=== PATIENT | male | born 1955 | race Hispanic/Latino ===

== ENCOUNTER 2024-10-24 04:04 | Inpatient (IN) | payer OTHER, MEDICARE ==
[~2024-10-24] VITALS: Ht 160 cm; Wt 66.3 kg
[~2024-10-24 04:04] MED LIST: INSU100V12 SQ; METF-444 PO; TRAM50TA4 PO
--- NOTE | 2024-10-24 04:18 | NUR ---
PT CARE ASSUMED AT THIS TIME
[2024-10-24] MEDS: LACTATED RINGERS 1000ML 1,000 ML IV ONE (04:42)
[2024-10-24 04:43] LABS: IMMATURE GRANULOCYTE ABSOLUTE 0.03 K/uL (0-1); NUCLEATED RED BLOOD CELLS 0.0 % (0.0-0.19); PLATELET COUNT (AUTO) 192 K/uL (130-400); RED BLOOD CELL COUNT(AUTO) 3.79 MIL/uL (4.50-6.20); RED CELL DISTRIBUTION WIDTH 13.1 % (11.0-15.5); WHITE BLOOD COUNT (AUTO) 8.9 K/uL (4.8-10.8)
[2024-10-24 04:51] LABS: APPEARANCE,URINE TURBID (CLEAR); GLUCOSE, URINE (UA) 500 mg/dL (NEGATIVE); LEUKOCYTE ESTERASE ,URINE 75 Leu/uL (NEGATIVE); NITRATE,URINE NEGATIVE (NEGATIVE); OCCULT BLOOD,URINE LARGE (NEGATIVE)
[2024-10-24 04:51] LABS: CREATININE 1.1 mg/dL (0.5-1.3); GLOMERULAR FILTR. RATE CALC 74.0 mL/min (>90); GLUCOSE,RANDOM 216.0 mg/dL (70-105); SODIUM SERUM 143.0 mmol/L (136-145); UREA NITROGEN, BLOOD 15.0 mg/dL (7-18)
[2024-10-24 04:52] LABS: ADD UA MICROSCOPIC YES
[2024-10-24 04:56] LABS: ASPARTATE AMINOTRANSFERASE 21.0 U/L (10-37); TOTAL PROTEIN, SERUM 6.4 g/dL (6.0-8.3)
--- NOTE | 2024-10-24 05:01 | HMCIMG ---
EXAM: CT Abdomen and Pelvis without IV contrast CLINICAL HISTORY: Pain. TECHNIQUE: Thin collimated axial CT images of the abdomen and pelvis were obtained, with sagittal and coronal reformatted images also submitted. CT scan is done according to ALARA (As Low As Reasonably Achievable). CONTRAST: None. COMPARISON: None. FINDINGS: Small pleural effusions bilaterally. Cholelithiasis with mildly hydropic gallbladder. No focal abnormality within the liver, pancreas, spleen, or adrenals. Punctate nonobstructive calculus in the left renal lower pole. There is mild hyperdensity in the medullary pyramid at the left renal upper pole. Unremarkable right kidney. The urinary bladder is suboptimally distended and grossly unremarkable. The prostate is within normal limits. No obvious bowel wall thickening, dilatation, or obstruction. Unremarkable appendix. Mild calcific atherosclerotic disease in the abdominal aorta and its branches. No pathological lymphadenopathy in the abdomen or pelvis. No ascites or pneumoperitoneum. No acute bony abnormality is evident. Degenerative osseous changes. IMPRESSIONS: Cholelithiasis with mildly hydropic gallbladder. Recommend ultrasound of the gallbladder to rule out acute cholecystitis. Small pleural effusions bilaterally. Punctate nonobstructive calculus in the left renal lower pole. Nonspecific hyperdensity in the medullary pyramid at the left renal upper pole. /[place]
--- NOTE | 2024-10-24 06:15 | ERN ---
General Chief Complaint: Blood in Urine: Stated Complaint: LOWER ABDOMINAL PAIN, BLOOD IN URINE Time Seen by MD: 04:30 History of Present Illness Initial Comments Mr Gee is a 69-year-old male with significant past medical history of type 2 diabetes presents today with the abdominal pain patient reports that he has been having increased abdominal pain and painful urination. Allergies: Coded Allergies: No Known Allergies (Unverified Allergy, Unknown, 07/09/14) Home Meds Reported Medications Tramadol Hcl (Tramadol HCl) 50 Mg Tablet, 50 MG PO DAILY, TAB 07/30/14 Insulin Detemir (Levemir) 100 Unit/1 Ml Vial, 100 UNIT SQ HS, VIAL 07/30/14 Metformin HCl (Metformin HCl) 500 Mg Tablet, 500 MG PO BID, TAB 07/30/14 Past Medical History Past Medical History: Diabetes-Type II Past Surgical History: None ROS Dictation Constitutional: Negative for fever,chills, and weight loss Eyes: Negative for injury, pain,redness, and discharge ENT: Negative for injury,pain or swelling Cardiovascular: Negative for chest pain, palpitations, and edema Respiratory: Negative for shortness of breath, cough, and wheezing, Abdomen/GI: Painful urination, blood in urine Back: Negative for injury and pain : Negative for injury, bleeding and discharge MS/Extremity: Negative for injury and deformity Skin: Negative for rash, and discoloration Neuro: Negative for headache, weakness, numbness, tingling, and seizure Psych: Negative for suicide ideation, homicidal ideation, and hallucinations Physical Exam Physical Exam Dictation General: awake, alert, NAD Head/Face: Normocephalic, atraumatic Eyes: PERRL, EOMI, vision at baseline ENT: oral cavity clear, TMs clear, no signs of infection Neck: Trachea midline, supple, no nuchal rigidity Cardiovascular: RRR, normal S1/S2, No MRGs, no JVD Respiratory: CTAB, no respiratory distress, No rales or wheezes Abdomen: Pain with palpation Skin: Warm, dry, normal turgor, no rash MS/Extremity: Pulses equal, no cyanosis, neurovascular intact, FROM Neuro: COAx4, GCS 15, strength 5/5, CN 2-12 intact, normal cerebellar exam, normal gait, Psych: Normal behavior, mood, and affect normal Results Laboratory and Microbiology Lab and Micro Result Laboratory Tests Test 10/24/24 04:29 10/24/24 04:37 Urine Color RED (YELLOW) Urine Appearance TURBID (CLEAR) Urine pH 6.0 (5.0-8.0) Urine Specific [place] 1.014 (1.001-1.031) Urine Protein 100 mg/dL (NEGATIVE) H Urine Glucose (UA) 500 mg/dL (NEGATIVE) H Urine Ketones NEGATIVE mg/dL (NEGATIVE) Urine Occult Blood LARGE (NEGATIVE) H Urine Nitrate NEGATIVE (NEGATIVE) Urine Bilirubin NEGATIVE mg/dL (NEGATIVE) Urine Urobilinogen 0.2 mg/dL (0.2-1.0) Urine Leukocyte Esterase 75 Jhonatan/uL (NEGATIVE) H Urine RBC TNTC /HPF (0-1) H Urine WBC 26-50 /HPF (0-1) H Urine Bacteria FEW /HPF (None Seen) White Blood Count 8.9 K/uL (4.8-10.8) Red Blood Count 3.79 MIL/uL (4.50-6.20) L Hemoglobin 11.8 g/dL (14.0-18.0) L Hematocrit 33.9 % (42-54) L Mean Corpuscular Volume 89.4 fL (79-99) Mean Corpuscular Hemoglobin 31.1 pg (27.0-33.0) Mean Corpuscular Hemoglobin Concent 34.8 g/dL (32.0-36.0) Red Cell Distribution Width 13.1 % (11.0-15.5) Platelet Count 192 K/uL (130-400) Mean Platelet Volume 10.1 fL (7.5-10.5) Immature Granulocyte % (Auto) 0.3 % (0-1) Neutrophils (%) (Auto) 67.9 % (40.0-77.0) Lymphocytes (%) (Auto) 23.6 % (21.0-51.0) Monocytes (%) (Auto) 6.4 % (3.0-13.0) Eosinophils (%) (Auto) 1.2 % (0.0-8.0) Basophils (%) (Auto) 0.6 % (0.0-5.0) Neutrophils # (Auto) 6.1 K/uL (1.8-7.7) Lymphocytes # (Auto) 2.1 K/uL (1.0-4.8) Monocytes # (Auto) 0.6 K/uL (0.1-1.0) Eosinophils # (Auto) 0.11 K/uL (0.00-0.70) Basophils # (Auto) 0.05 K/uL (0.00-0.20) Absolute Immature Granulocyte (auto 0.03 K/uL (0-1) Nucleated Red Blood Cells 0.0 % (0.0-0.19) Sodium Level 143 mmol/L (136-145) Potassium Level 3.7 mmol/L (3.5-5.1) Chloride Level 105 mmol/L (101-111) Carbon Dioxide Level 32 mmol/L (21-32) Blood Urea Nitrogen 15 mg/dL (7-18) Creatinine 1.1 mg/dL (0.5-1.3) Glomerular Filtration Rate Calc 74 mL/min (>90) Random Glucose 216 mg/dL (70-105) H Total Calcium 8.5 mg/dL (8.5-10.1) Total Bilirubin 0.5 mg/dL (0.2-1.0) Aspartate Amino Transf (AST/SGOT) 21 U/L (10-37) Alanine Aminotransferase (ALT/SGPT) 20 U/L (12-78) Alkaline Phosphatase 156 U/L (50-136) H Total Protein 6.4 g/dL (6.0-8.3) Albumin 2.9 g/dL (3.5-5.0) L MDM [facility] MDM: Differential diagnosis: Acute cholecystitis Rationale: Tests considered and ordered secondary to shared decision making include: labs, ECG and radiology Previous outside records reviewed: Old ER visits. Risk of complication and/or morbidity or mortality of patient management: None Medications-Per medication reconciliation Need for hospitalization: Patient does meet criteria for hospitalization. Need for emergency major/minor surgery: No There are no social concerns with this patient. Prescription drug management Prescriptions will include symptomatic care Patient's prior external medical records from other ER visits were reviewed by me as indicated. Prior testing and results from previous visits were reviewed. Prior tests were taken into account with medical decision making and resource utilization, independent historian/historians were used to obtain complete medical history. I independently interpreted the test that were performed, results were reviewed by me and considered findings on radiology if ordered. Medical management and examination interpretation discussions were had by me with other qualified healthcare professionals as indicated for the patient's care. ED Course Orders Procedure Category Date Status Time Cbc With Differential LAB 10/24/24 Complete 04:06 Comprehensive LAB 10/24/24 Complete Metabolic Panel 04:06 Urinalysis Profile LAB 10/24/24 Complete 04:06 Lactated Ringers PHA 10/24/24 Complete 1000ml (Lactated 04:30 Morphine 2mg Syg PHA 10/24/24 Complete (Morphine 2mg Syg) 04:30 Ct Abdomen/Pelvis W/O CT 10/24/24 Resulted Contrast 04:06 Culture Urine KVNG 10/24/24 In Process 04:52 Us Abdominal Ruq\Ltd US 10/24/24 Logged 06:16 Ceftriaxone 2gm Vial PHA 10/24/24 Complete (Rocephin 2gm Inj) 06:30 Morphine 4mg Syg PHA 10/24/24 Complete (Morphine 4mg Syg) 06:30 0.9%Nacl 1000ml (Ns PHA 10/24/24 In Process 1000ml) 06:30 Current Medications Medications (Trade) Dose Ordered Sig/Robel Route PRN Reason Start Time Stop Time Status Last Admin Dose Admin Ceftriaxone Sodium (Rocephin 2gm Inj) 2 gm ONCE ONCE IVPB 10/24/24 06:30 10/24/24 06:31 DC 10/24/24 06:39 Lactated Ringer's 1,000 ml @ 0 mls/hr ONCE ONCE IV 10/24/24 04:30 10/24/24 04:31 DC 10/24/24 04:42 Morphine Sulfate (morPHINE 2MG SYG) 2 mg ONCE ONCE IVP 10/24/24 04:30 10/24/24 04:31 DC 10/24/24 04:48 Morphine Sulfate (morPHINE 4MG SYG) 4 mg ONCE ONCE IVP 10/24/24 06:30 10/24/24 06:31 DC Sodium Chloride 729 ml @ 243 mls/hr ONCE ONCE IV 10/24/24 06:30 10/24/24 09:29 10/24/24 06:40 Vital Signs Date Time Temp Pulse Resp B/P (MAP) Pulse Ox O2 Delivery O2 Flow Rate FiO2 10/24/24 05:42 78 19 151/78 100 Room Air* 0 21 10/24/24 04:24 98.1 81 18 161/77 99 Room Air* 0 21 10/24/24 04:05 98.2 98 18 169/99 98 Room Air 0 DX & DISP Disposition: Other(Comment) Departure Impression: Primary Impression: Acute cholecystitis Condition: Stable Referrals: JENNIFFER KERN (PCP) ABNER TAPIA MD Oct 24, 2024 06:15
[2024-10-24] MEDS: 0.9%NACL 1000ML 729 ML IV ONE (06:40)
--- NOTE | 2024-10-24 07:03 | NUR ---
REPORT GIVEN TO JASMYN BALES AT THIS TIME
--- NOTE | 2024-10-24 07:39 | HMCIMG ---
EXAM: US Abdomen, Right Upper Quadrant. CLINICAL HISTORY: RUQ pain TECHNIQUE: Right upper quadrant sonography performed with image documentation. COMPARISON: None provided. FINDINGS: Hepatomegaly; the right hepatic lobe measures up to 16.7 cm in the craniocaudal dimension. There is appropriate echogenicity and echotexture of the hepatic parenchyma. The gallbladder is markedly distended, and filled with sludge and stones. There is no gallbladder wall thickening. There is ringdown artifact seen from the fundal wall suggesting adenomyomatosis. There is no pericholecystic free fluid. The common bile duct is normal in caliber, measuring up to 0.3 cm. The right kidney is normal in caliber, measuring up to 10.1 x 5.0 x 4.6 cm. IMPRESSION: 1. Cholelithiasis and biliary sludge with marked gallbladder distention. Gallbladder adenomyomatosis. If there is clinical concern for acute cholecystitis recommend a hepatobiliary (HIDA) scan for further evaluation. 2. Hepatomegaly with right hepatic lobe measuring 16.7 cm. /[place]
--- NOTE | 2024-10-24 08:25 | HP ---
[facility] HISTORY AND PHYSICAL Date of Service: Oct 24, 2024 Time of Service: 08:25 HISTORY OF PRESENT ILLNESS: Patient is a 69-year-old male with past medical history of diabetes mellitus type 2 came to the ED with chief complaint of lower abdominal pain, hematuria since last night. Patient complains of lower abdominal pain which does not have any aggravating or relieving factors and does not radiate since 1 day, patient denies fever, chills, headache, diarrhea, vomiting, pain or burning sensation with urination. Patient has associated nausea. He told that he never saw a doctor in last 7 years and does not take any medications for the diabetes mellitus. Patient never had any history of renal stones, blood in the urine. On arrival to the ED patient vitals temperature 98.2, heart rate 98, respiratory rate 18, blood pressure 169/99, saturating at 98% on room air. On labs patient white blood count 8.9, hemoglobin 11.8 And chemistries shows sodium 143, potassium 3.7, BUN 15, creatinine 1.1 , urinalysis shows glucosuria proteinuria and mild UTI with large occult blood. Patient received 2 g IV Rocephin, morphine 2 mg, IV fluid with LR 1000 mL in the ED . CT abdomen pelvis revealed cholelithiasis with mildly hydropic gallbladder which recommended ultrasound correlation to rule out acute cholecystitis and ultrasound abdomen showed cholelithiasis and biliary sludge with marked gallbladder distention recommended HIDA scan to rule out cholecystitis Small bilateral pleural effusions Punctate nonobstructive calculus in the left renal lower pole and nonspecific hyperdensity in the medullary per minute at the left renal upper pole. Patient is being admitted with a diagnosis of possible nephrolithiasis, possible cholecystitis. REVIEW OF SYSTEMS CONSTITUTIONAL: Denies fevers, chills, or night sweats. No unintentional weight loss reported. CARDIOVASCULAR: Denies any exertional angina, dyspnea on exertion, orthopnea, paroxysmal nocturnal dyspnea, palpitations, life-threatening arrhythmias, claudication. PULMONARY: Denies any shortness of breath, cough, phlegm/sputum, hemoptysis, pleuritic chest pain. GASTROINTESTINAL: Denies any type of dysphagia to either liquids or solids. Denies vomiting, pyrosis, early satiety, diarrhea, constipation, or changes in stool consistency or caliber. Denies coffee-ground emesis, hematemesis, hematochezia, or melanotic stools. Admits to lower abdominal pain, nausea GENITOURINARY: Denies frequency, urgency, nocturia, incontinence (Storage/Irritative symptoms.) Low urinary stream, straining to void, urinary intermittency or hesitancy, splitting of the voiding stream, terminal dribbling. Admits to blood in urine ENDOCRINOLOGIC: Denies polyuria, polydipsia, polyphagia or heat/cold intolerances. DERMATOLOGIC: Admits to a lot of rashes on upper and lower extremities PAST MEDICAL HISTORY: Diabetes mellitus type 2 PAST SURGICAL HISTORY: none PAST SOCIAL HISTORY: Denies smoking and alcohol FAMILY HISTORY: Noncontributory Coded Allergies: No Known Allergies (Unverified Allergy, Unknown, 07/09/14) PHYSICAL EXAM GENERAL APPEARANCE: The patient is awake, alert, and oriented, mild acute distress. CHEST: Normal chest expansion. Telemetry. LUNGS: Absence of any rales, rhonchi or any wheezing. CARDIOVASCULAR: Regular. S1 and S2 normal. No appreciable rubs, murmurs or gallops. ABDOMEN: Soft, , and nondistended. There is no rebound, voluntary guarding, or rigidity. EXTREMITIES: Non-edematous and not cyanotic. No clubbing. Good capillary refill. Vital Sign (Last 24 Hours) 10/24/24 07:44 Temp 98.2 Pulse 62 Resp 16 B/P (MAP) 121/62 Pulse Ox 100 O2 Delivery Room Air* O2 Flow Rate 0 FiO2 21 LABS: Laboratory: Test 10/24/24 04:37 10/24/24 04:29 Range/Units White Blood Count 8.9 4.8-10.8 K/uL Red Blood Count 3.79 L 4.50-6.20 MIL/uL Hemoglobin 11.8 L 14.0-18.0 g/dL Hematocrit 33.9 L 42-54 % Mean Corpuscular Volume 89.4 79-99 fL Mean Corpuscular Hemoglobin 31.1 27.0-33.0 pg Mean Corpuscular Hemoglobin Concent 34.8 32.0-36.0 g/dL Red Cell Distribution Width 13.1 11.0-15.5 % Platelet Count 192 130-400 K/uL Mean Platelet Volume 10.1 7.5-10.5 fL Immature Granulocyte % (Auto) 0.3 0-1 % Neutrophils (%) (Auto) 67.9 40.0-77.0 % Lymphocytes (%) (Auto) 23.6 21.0-51.0 % Monocytes (%) (Auto) 6.4 3.0-13.0 % Eosinophils (%) (Auto) 1.2 0.0-8.0 % Basophils (%) (Auto) 0.6 0.0-5.0 % Neutrophils # (Auto) 6.1 1.8-7.7 K/uL Lymphocytes # (Auto) 2.1 1.0-4.8 K/uL Monocytes # (Auto) 0.6 0.1-1.0 K/uL Eosinophils # (Auto) 0.11 0.00-0.70 K/uL Basophils # (Auto) 0.05 0.00-0.20 K/uL Absolute Immature Granulocyte (auto 0.03 0-1 K/uL Nucleated Red Blood Cells 0.0 0.0-0.19 % Sodium Level 143 136-145 mmol/L Potassium Level 3.7 3.5-5.1 mmol/L Chloride Level 105 101-111 mmol/L Carbon Dioxide Level 32 21-32 mmol/L Blood Urea Nitrogen 15 7-18 mg/dL Creatinine 1.1 0.5-1.3 mg/dL Glomerular Filtration Rate Calc 74 >90 mL/min Random Glucose 216 H 70-105 mg/dL Total Calcium 8.5 8.5-10.1 mg/dL Total Bilirubin 0.5 0.2-1.0 mg/dL Aspartate Amino Transf (AST/SGOT) 21 10-37 U/L Alanine Aminotransferase (ALT/SGPT) 20 12-78 U/L Alkaline Phosphatase 156 H 50-136 U/L Total Protein 6.4 6.0-8.3 g/dL Albumin 2.9 L 3.5-5.0 g/dL Urine Color RED YELLOW Urine Appearance TURBID CLEAR Urine pH 6.0 5.0-8.0 Urine Specific [place] 1.014 1.001-1.031 Urine Protein 100 H NEGATIVE mg/dL Urine Glucose (UA) 500 H NEGATIVE mg/dL Urine Ketones NEGATIVE NEGATIVE mg/dL Urine Occult Blood LARGE H NEGATIVE Urine Nitrate NEGATIVE NEGATIVE Urine Bilirubin NEGATIVE NEGATIVE mg/dL Urine Urobilinogen 0.2 0.2-1.0 mg/dL Urine Leukocyte Esterase 75 H NEGATIVE Jhonatan/uL Urine RBC TNTC H 0-1 /HPF Urine WBC 26-50 H 0-1 /HPF Urine Bacteria FEW None Seen /HPF Current Medications Medications (Trade) Dose Ordered Sig/Robel Route PRN Reason Start Time Stop Time Status Last Admin Dose Admin Acetaminophen (TYLenol 325MG TAB) 650 mg Q4H PRN PO TEMPERATURE GREATER THAN 101.5 10/24/24 08:30 11/23/24 08:29 UNV Acetaminophen (TYLenol 500MG TAB) 500 mg Q6H PRN PO MILD PAIN (1-3) 10/24/24 08:30 11/23/24 08:29 UNV Aspirin (Aspirin 81mg Ec Tab) 81 mg DAILY PO 10/24/24 09:00 11/23/24 08:59 UNV Dextrose (D50w) 50 ml AD PRN IV HYPOGLYCEMIA PROTOCOL 10/24/24 08:30 11/23/24 08:29 UNV Famotidine (Pepcid 20mg Vial) 20 mg BID IV 10/24/24 09:00 11/23/24 08:59 Glucagon (Glucagon 1mg Kit) 1 mg AD PRN IM HYPOGLYCEMIA PROTOCOL 10/24/24 08:30 11/23/24 08:29 UNV Hydromorphone HCl (DiLAUDid 0.5MG INJ) 0.5 mg Q6H PRN IVP SEVERE PAIN (7-10) 10/24/24 08:30 10/29/24 08:29 UNV Insulin Human Regular (humuLIN R 100 UNIT/ML 3ML) INSULIN SLIDING SCAL... ACHS SQ 10/24/24 11:30 11/23/24 11:29 UNV Magnesium Sulfate 50 ml @ 0 mls/hr PROTOCOL PRN IV mgprotocol 10/24/24 08:30 11/23/24 08:29 UNV Morphine Sulfate (morPHINE 2MG SYG) 1 mg Q4H PRN IVP MODERATE PAIN (4-6) 10/24/24 08:30 10/31/24 08:29 UNV Potassium Chloride 100 ml @ 50 mls/hr AD PRN IV POTASSIUM PROTOCOL 10/24/24 08:30 11/23/24 08:29 UNV Potassium Chloride 100 ml @ 100 mls/hr AD PRN IV POTASSIUM PROTOCOL 10/24/24 08:30 11/23/24 08:29 UNV Potassium Chloride (K-Dur/Klor-Con 20meq) 20 meq AD PRN PO POTASSIUM PROTOCOL 10/24/24 08:30 11/23/24 08:29 UNV Potassium Chloride (KCl 10% Elixir 20meq/15ml) 20 meq AD PRN PO POTASSIUM PROTOCOL 10/24/24 08:30 11/23/24 08:29 UNV Sodium Chloride 1,000 ml @ 110 mls/hr Q9H6M IV 10/24/24 08:30 11/23/24 08:29 DIAGNOSTICS / RADIOLOGY: PATIENT: ZAFAR WALDRON MR#: [id number] : 1955 SEX: M AGE: 69 LOCATION: [facility] ORDER 6 STATUS: REG REPORT#: [id number] SERVICE 5 REASON: RUQ pain ORDERING PHYSICIAN: ABNER TAPIA MD PROCEDURE: [id number] - US ABDOMINAL RUQ\LTD EXAM: US Abdomen, Right Upper Quadrant. CLINICAL HISTORY: RUQ pain TECHNIQUE: Right upper quadrant sonography performed with image documentation. COMPARISON: None provided. FINDINGS: Hepatomegaly; the right hepatic lobe measures up to 16.7 cm in the craniocaudal dimension. There is appropriate echogenicity and echotexture of the hepatic parenchyma. The gallbladder is markedly distended, and filled with sludge and stones. There is no gallbladder wall thickening. There is ringdown artifact seen from the fundal wall suggesting adenomyomatosis. There is no pericholecystic free fluid. The common bile duct is normal in caliber, measuring up to 0.3 cm. The right kidney is normal in caliber, measuring up to 10.1 x 5.0 x 4.6 cm. IMPRESSION: 1. Cholelithiasis and biliary sludge with marked gallbladder distention. Gallbladder adenomyomatosis. If there is clinical concern for acute cholecystitis recommend a hepatobiliary (HIDA) scan for further evaluation. 2. Hepatomegaly with right hepatic lobe measuring 16.7 cm. /[place] DICTATED BY: JORGE SHEPHERD Jr., MD DATE: 10/24/24837 ELECTRONICALLY SIGNED BY: JORGE SHEPHERD Jr., MD DATE: 10/24/24837 PATIENT: ZAFAR WALDRON MR#: [id number] : 1955 SEX: M AGE: 69 LOCATION: [facility] ORDER 7 STATUS: REG REPORT#: [id number] SERVICE 5 REASON: ABD PAIN ORDERING PHYSICIAN: ABNER TAPIA MD PROCEDURE: ABD PEL WO - CT ABDOMEN/PELVIS W/O CONTRAST EXAM: CT Abdomen and Pelvis without IV contrast CLINICAL HISTORY: Pain. TECHNIQUE: Thin collimated axial CT images of the abdomen and pelvis were obtained, with sagittal and coronal reformatted images also submitted. CT scan is done according to ALARA (As Low As Reasonably Achievable). CONTRAST: None. COMPARISON: None. FINDINGS: Small pleural effusions bilaterally. Cholelithiasis with mildly hydropic gallbladder. No focal abnormality within the liver, pancreas, spleen, or adrenals. Punctate nonobstructive calculus in the left renal lower pole. There is mild hyperdensity in the medullary pyramid at the left renal upper pole. Unremarkable right kidney. The urinary bladder is suboptimally distended and grossly unremarkable. The prostate is within normal limits. No obvious bowel wall thickening, dilatation, or obstruction. Unremarkable appendix. Mild calcific atherosclerotic disease in the abdominal aorta and its branches. No pathological lymphadenopathy in the abdomen or pelvis. No ascites or pneumoperitoneum. No acute bony abnormality is evident. Degenerative osseous changes. IMPRESSIONS: Cholelithiasis with mildly hydropic gallbladder. Recommend ultrasound of the gallbladder to rule out acute cholecystitis. Small pleural effusions bilaterally. Punctate nonobstructive calculus in the left renal lower pole. Nonspecific hyperdensity in the medullary pyramid at the left renal upper pole. /[place] DICTATED BY: JORGE SHEPHERD Jr., MD DATE: 10/24/24600 ELECTRONICALLY SIGNED BY: JORGE SHEPHERD Jr., MD DATE: 10/24/24600 ASSESSMENT: Hematuria possibly secondary to Nephrolithiasis Urinary tract infection Possible cholecystitis Hypomagnesemia Diabetes mellitus type 2 Normocytic anemia PLAN: Hematuria possibly secondary to Nephrolithiasis, Urinary tract infection Patient started on Zosyn 3.37 q8h Patient continued on fluids with NS 110 mL/hour Pain medication as needed with morphine Urology has been consulted on the case due to hematuria Patient will be started on tamsulosin 0.4 daily Possible cholecystitis Patient is started on Zosyn Follow up with HIDA scan General surgery consulted on the case Hypomagnesemia Electrolyte to be repleted according to the protocol DVT prophylaxis with SCDs GI prophylaxis with famotidine 20 mg IV b.i.d. Per the course of hospitalization depending on urology recommendations and clinical response ATTESTATION BY PHYSICIAN I have seen and examined the patient. I reviewed the documentation, medical decision making, and treatment plan as noted by the resident provider above. I agree with the findings and plan of care. Rafita Quiroz MD, KEERTI K MD Oct 24, 2024 08:25
[2024-10-24] MEDS: 0.9%NACL 1000ML 1,000 ML IV SCH (08:27)
[2024-10-24] MEDS: FAMOTIDINE 20MG VIAL IV SCH (08:27)
[2024-10-24] MEDS ORDERED: DEXTROSE 50%-WATER 50 ML DISP.SYRIN IV PRN (08:30)
[2024-10-24] MEDS ORDERED: GLUCAGON 1MG KIT 1 MG ML IM PRN (08:30)
[2024-10-24] MEDS ORDERED: PoTASSium chloRIDE 20MEQ ER 20 MEQ ERTAB PO PRN (08:30)
[2024-10-24] MEDS ORDERED: PoTASSium chl 10% ELIXIR 20MEQ 20 MEQ/15 ML UDCUP PO PRN (08:30)
[2024-10-24] MEDS: ASPIRIN 81 MG EC TAB PO SCH (08:33)
[2024-10-24 08:51] LABS: INR 0.96 (0.85-1.15)
[2024-10-24 09:17] LABS: % IRON SATURATION 24.2 % (30-44); IRON, SERUM 42.0 mcg/dL (65-175)
[2024-10-24 09:33] LABS: LDL DIRECT 116.0 mg/dL (0-99); PHOSPHORUS 4.0 mg/dL (2.5-4.9)
[2024-10-24] MEDS: ZOSYN 3.375GM +NS 50ML IVPB SCH (09:54)
[2024-10-24] MEDS ORDERED: 0.9%NACL 50ML IV SCH (10:00)
--- NOTE | 2024-10-24 10:12 | NUR ---
SURGERY CONSULT WITH DR. OTERO IS DONE, NO NEW ORDERS. UROLOGY CONSULT DONE, NOTIFIED MAYELA WITH DR. YEE.
[2024-10-24 12:18] LABS: HIV 1&2 ANTIBODY Non-Reactive (Negative)
--- NOTE | 2024-10-24 15:33 | EKG ---
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
--- NOTE | 2024-10-24 15:45 | CONS ---
[facility] Cardiology Consultation Note Cardiology consult dictated for Kan Cordon MD Date of service 10/24/2024 Chief complaint: Lower abdominal pain, hematuria Reason for consult: PAD History of present illness: 69-year-old male presented for evaluation of lower abdominal pain and hematuria since last night. He was diagnosed with UTI and CT of the abdomen pelvis revealed cholelithiasis with mildly hydropic gallbladder with ultrasound of the abdomen demonstrating cholelithiasis and biliary sludge with marked gallbladder distention and recommendation for HIDA scan. On CT of the abdomen mild calcific atherosclerotic disease in the abdominal aorta and branches noted and this prompted cardiology consult for evaluation of PAD. Past medical history: Positive for diabetes mellitus type 2 , negative for CVA TIA no PE no DVT no liver kidney thyroid disease. Past surgical history: None reported Allergies: No known allergies Social history: Patient denies tobacco alcohol or illicit drug use Review of blood work: CBC with white blood cells of 8.9, hemoglobin 11.8 hemato crit 33.9 and platelets of a 192. Basic metabolic panel with sodium of 143, potassium of 3.7, BUN of 15 creatinine of 1.1 and a GFR of 74. Physical exam: Blood pressure 132/67 heart rate of 67 beats per minute and regular normal S1-S2 no rubs gallops murmurs noted. Neck is supple no jugular vein distention no carotid bruits. Bilateral breath sounds are clear to auscultation lower extremities no edema no cyanosis. Patient is alert awake and oriented. Assessment: Abdominal pain Cholelithiasis Incidental finding CT of the abdomen mild calcific atherosclerotic disease in the abdominal aorta and branches Diabetes mellitus type Plan: At this point we have a patient that is 69 years old presented for evaluation of lower abdominal pain and hematuria he was diagnosed with UTI. On CT of the abdomen there was an incidental finding of mild calcific atherosclerotic disease in the abdominal aorta and branches a. A cardiology consult was requested for evaluation of PAD. He is a diabetic and is experiencing claudication type symptoms. We will schedule bilateral lower extremity arterial Doppler and ultrasound mesenteric and celiac artery. JUANY LITTLE Oct 24, 2024 15:45
--- NOTE | 2024-10-24 16:10 | NUR ---
DCP:HOME Pt currently lives at home with gabirela Gee [phone]. Pt does not have insecurities with food, senior living, and/or utilities. Pt does not have any DME, home health, or provider services. Pt is able to complete ADLs independently. PCP is Mukund Malave, pt does state that it has been a while since he last went to him however will start to go see him regularly. Pt uses [facility] in [place] for any RX needs. At [place] pt will want to go home and family can assist with transportation. Addendum: 10/24/24 at 1613 by JELANI LÓPEZ SS Amended: Links added.
--- NOTE | 2024-10-24 20:49 | NUR ---
PATIENT NOT ON ANY HOME MEDS
[2024-10-24 22:33] VITALS: BP 160/84; PULSE 82; RESP 18; TEMP 98.2
--- NOTE | 2024-10-24 22:37 | NUR ---
DR YEE AT BEDSIDE AT 22:23
[2024-10-25] VITALS (7 sets, daily range): BP systolic 120–132; BP diastolic 58–71; PULSE 74–96; RESP 17–19; TEMP 97.7–98.7; O2SAT 93–95
[2024-10-25 05:05] LABS: IMMATURE GRANULOCYTE ABSOLUTE 0.09 K/uL (0-1); NUCLEATED RED BLOOD CELLS 0.0 % (0.0-0.19); PLATELET COUNT (AUTO) 177 K/uL (130-400); RED BLOOD CELL COUNT(AUTO) 3.63 MIL/uL (4.50-6.20); RED CELL DISTRIBUTION WIDTH 13.1 % (11.0-15.5); WHITE BLOOD COUNT (AUTO) 16.5 K/uL (4.8-10.8)
[2024-10-25 05:18] LABS: CREATININE 1.9 mg/dL (0.5-1.3); GLOMERULAR FILTR. RATE CALC 38.0 mL/min (>90); GLUCOSE,RANDOM 231.0 mg/dL (70-105); SODIUM SERUM 142.0 mmol/L (136-145); UREA NITROGEN, BLOOD 22.0 mg/dL (7-18)
--- NOTE | 2024-10-25 05:38 | HMCIMG ---
EXAMINATION: DUPLEX ULTRASOUND EXAMINATION OF THE BILATERAL LOWER EXTREMITY ARTERIES. CLINICAL HISTORY: PAD. COMPARISON: None. FINDINGS: Peak systolic velocities within the right lower arteries are as follows: Common femoral artery: 101 cm/s. Superficial femoral artery: 88 cm/s at proximal, 76 cm/s at mid, and 80 cm/s at distal segments. Popliteal artery: 51 cm/s at proximal and 92 cm/s at distal segments. Posterior tibial artery: 76 cm/s. Anterior tibial artery: 30 cm/s. Dorsalis pedis artery: 25 cm/s. The right lower limb arteries demonstrate triphasic to biphasic waveforms in all arteries except the anterior tibial, posterior tibial, and dorsalis pedis arteries which demonstrate monophasic waveforms. Peak systolic velocities within the left lower arteries are as follows: Common femoral artery: 68 cm/s. Superficial femoral artery: 113 cm/s at proximal, 93 cm/s at mid, and 81 cm/s at distal segments. Popliteal artery: 44 cm/s at proximal and 73 cm/s at distal segments. Posterior tibial artery: 42 cm/s. Anterior tibial artery: 109 cm/s. Dorsalis pedis artery: 80 cm/s. The left lower limb arteries demonstrate biphasic to monophasic waveforms in all arteries. There is intimal wall thickening in both the lower limb arteries. IMPRESSION: Mild intimal wall thickening in both the lower limb arteries. The right lower limb arteries demonstrate triphasic to biphasic waveforms in all arteries except the anterior tibial, posterior tibial, and dorsalis pedis arteries which demonstrate monophasic waveforms. The left lower limb arteries demonstrate biphasic to monophasic waveforms in all arteries. No flow limiting lesions. /Susan
--- NOTE | 2024-10-25 05:50 | HMCIMG ---
Examination Hepatobiliary study History RUQ Pain Technique [id number] mebrofenin were administered intravenously followed by acquisition of planar images of the abdomen. Findings Following administration of radiotracer, there is prompt appearance of normal hepatic contours, followed by appearance of activity in unremarkable appearing bile ducts. There is prompt filling of the gallbladder. The study is negative for acute cholecystitis. IMPRESSION: Negative HIDA study. No evidence of cholecystitis. /[place]
[2024-10-25] MEDS: MAGNESIUM 2GM PREMIX 50ML 50 ML IV PRN (06:03)
--- NOTE | 2024-10-25 08:00 | PN ---
[facility] Cardiology Progress Note Cardiology progress note dictated for Jyotsna Stevens MD Date of service 10/25/2024 Problem list: Abdominal pain Cholelithiasis Incidental finding CT of the abdomen mild calcific atherosclerotic disease in the abdominal aorta and branches PAD Diabetes mellitus type Review of blood work this morning white blood cells 16.5, hemoglobin of 11.2, hematocrit 32.4, platelets of 1. Basic metabolic panel with a sodium of142 potassium of 4.2 BUN of22 creatinine of 1.9. Current medications: IV antibiotics, insulin sliding scale, aspirin 81 mg daily Assessment/plan: 69 years old presented for evaluation of lower abdominal pain and hematuria he was diagnosed with UTI and cholelithiasis. On CT of the abdomen there was an incidental finding of mild calcific atherosclerotic disease in the abdominal aorta and branches a. A cardiology consult was requested for evaluation of PAD. He reported claudication type symptoms. We scheduled bilateral lower extremity arterial Doppler and ultrasound mesenteric and celiac artery. Arterial Doppler demonstrated right lower limb arteries triphasic to biphasic waveforms in all arteries except the anterior tibial, posterior tibial and dorsalis pedis arteries which demonstrated monophasic waveforms. The left lower limb arteries demonstrated biphasic to monophasic waveforms in all arteries with no flow- limiting lesions. Patient this morning denies chest pain shortness of breath dizziness syncope or palpitations. We are still pending ultrasound of mesenteric and celiac artery results. Addendum: The patient does have peripheral arterial disease in the lower extremities based on his Doppler exam. At this point because of hematuria antiplatelet agents are contraindicated for the time being. We will recommend starting a statin medication. He can follow up for outpatient management of his lower extremity PID. We will review results of the celiac and mesenteric artery Doppler exam when available. ATTESTATION BY PHYSICIAN I have seen and examined the patient. I reviewed the documentation, medical decision making, and treatment plan as noted by the mid-level provider above. I agree with the findings and plan of care. JYOTSNA STEVENS MD, [facility] Oct 25, 2024 08:00 JYOTSNA STEVENS MD Oct 25, 2024 11:59
--- NOTE | 2024-10-25 10:46 | CONS ---
REQUESTING PHYSICIAN: Rafita Quiroz MD REASON FOR CONSULTATION: Hematuria. HISTORY OF PRESENT ILLNESS: This is a 69-year-old male admitted to the hospital because of intermittent hematuria and abdominal pain. Noted to have a small lower pole nonobstructing stone in the left lower pole of the kidney and a consultation was requested. The patient encountered lying in bed comfortably. His urine is grossly cleared. He has no more abdominal pain. He feels much improved. ALLERGIES: Apparently none. MEDICATIONS: Include Dilaudid, Tylenol, morphine, IV Rocephin, Glucagon, famotidine, potassium chloride. PAST MEDICAL HISTORY: Significant for diabetes. PAST SURGICAL HISTORY: Apparently negative. FAMILY HISTORY: Negative for kidney stones. SOCIAL HISTORY: The patient is retired from the [employer]. He has 2 children. He does not smoke or drink. REVIEW OF SYSTEMS: He has no shortness of breath or chest pain. His appetite is poor. He has some nausea and vomiting. No constipation or diarrhea. No headaches or dizziness. No nosebleed. No joint pain, joint swelling, limitation of movement, night sweats, fever, chills or skin rash. PHYSICAL EXAMINATION: GENERAL: Well-developed male, in no distress. VITAL SIGNS: Temperature is 98, blood pressure is 121/62 with a pulse of 62. NECK: No adenopathy or supraclavicular masses palpable. LUNGS: Lung lemon are clear to auscultation. HEART: Heart sounds are best heard in the fifth intercostal space. ABDOMEN: Full, soft, nontender. BACK: No CVA tenderness. EXTERNAL GENITALIA AND RECTAL: Deferred. LABORATORY DATA: Shows a white count of 8.9, hematocrit is 33.9, platelet count is 192. Sodium 143, potassium 3.7, BUN and creatinine of 15/1.1. Urinalysis shows clear yellow urine. Specific gravity of 1.014 with pH of 6. The patient has some occult blood in the urine. Leukocyte esterase is positive and a few to no bacteria. IMAGING STUDIES: Reviewed today include a CT scan of the abdomen and pelvis that is significant for a 1 or 2 mm lower pole calculus, nonobstructing and punctate on the left side. No obstructive uropathy identified. Gallbladder stone noted. ASSESSMENT: Hematuria secondary to abdominal pain, improved. RECOMMENDATIONS: * Culture specific IV antibiotics. * IV hydration. * Follow up with PCP as an outpatient for referral to Urology for diagnostic cystoscopy. * The patient's concerns were answered. Currently, the patient has been admitted to the hospital for evaluation of cholecystitis and cholelithiasis concurrently. Evaluation for anemia is also in progress. Thank you for the opportunity of providing consultation on your patient. Sincerely, TID: [id number] RECEIPT: [id number]
--- NOTE | 2024-10-25 15:04 | PN ---
[facility] PROGRESS NOTE Date of Service: Oct 25, 2024 Time of Service: 14:32 SUBJECTIVE: Patient is a 69-year-old male with past medical history of diabetes mellitus type 2 came to the ED with chief complaint of lower abdominal pain, hematuria since last night. Patient complains of lower abdominal pain which does not have any aggravating or relieving factors and does not radiate since 1 day, patient denies fever, chills, headache, diarrhea, vomiting, pain or burning sensation with urination. Patient has associated nausea. He told that he never saw a doctor in last 7 years and does not take any medications for the diabetes mellitus. Patient never had any history of renal stones, blood in the urine. On arrival to the ED patient vitals temperature 98.2, heart rate 98, respiratory rate 18, blood pressure 169/99, saturating at 98% on room air. On labs patient white blood count 8.9, hemoglobin 11.8 And chemistries shows sodium 143, potassium 3.7, BUN 15, creatinine 1.1 , urinalysis shows glucosuria proteinuria and mild UTI with large occult blood. Patient received 2 g IV Rocephin, morphine 2 mg, IV fluid with LR 1000 mL in the ED . CT abdomen pelvis revealed cholelithiasis with mildly hydropic gallbladder which recommended ultrasound correlation to rule out acute cholecystitis and ultrasound abdomen showed cholelithiasis and biliary sludge with marked gallbladder distention recommended HIDA scan to rule out cholecystitis Small bilateral pleural effusions Punctate nonobstructive calculus in the left renal lower pole and nonspecific hyperdensity in the medullary per minute at the left renal upper pole. Patient is being admitted with a diagnosis of possible nephrolithiasis, possible cholecystitis. 10.25.2024 Patient was seen at bedside in room 304, patient denied any Abdominal pain and physical examination could not be performed as the patient was asleep and did n ot respond to attempts to awaken. Further history could not be obtained as the patient appeared irritable due to poor sleep and reported frequent awakening throughout the night. labs- WBC 8.9 to 16.5, BUN-22, creatinine - 1,9, GFR- 38, random glucose- 231, HbA1c- 7.9, Mg- 1.7. HIDA scan showed no evidence of cholecystitis. Arterial ultrasound- mild intimal wall thickening in both lower limbs. Urinary creatinine, urine electrolytes , CRP ,and procalcitonin have been ordered to further evaluate for underlying Acute kidney injury or potential infectious cause. REVIEW OF SYSTEMS CONSTITUTIONAL: Denies fevers, chills, or night sweats. No unintentional weight loss reported. CARDIOVASCULAR: Denies any exertional angina, dyspnea on exertion, orthopnea, paroxysmal nocturnal dyspnea, palpitations, life-threatening arrhythmias, claudication. PULMONARY: Denies any shortness of breath, cough, phlegm/sputum, hemoptysis, pleuritic chest pain. GASTROINTESTINAL: Denies any type of dysphagia to either liquids or solids. Denies vomiting, pyrosis, early satiety, diarrhea, constipation, or changes in stool consistency or caliber. Denies coffee-ground emesis, hematemesis, hematochezia, or melanotic stools. patient denies abdominal pain. GENITOURINARY: Denies frequency, urgency, nocturia, incontinence (Storage/Irritative symptoms.) Low urinary stream, straining to void, urinary intermittency or hesitancy, splitting of the voiding stream, terminal dribbling. ENDOCRINOLOGIC: Denies polyuria, polydipsia, polyphagia or heat/cold intolerances. PHYSICAL EXAM GENERAL APPEARANCE: The patient was asleep and was reluctant to answer further questions. CHEST: Normal chest expansion. Telemetry. LUNGS: Absence of any rales, rhonchi or any wheezing. CARDIOVASCULAR: Regular. S1 and S2 normal. No appreciable rubs, murmurs or gallops. ABDOMEN: Soft, , and nondistended. There is no rebound, voluntary guarding, or rigidity. EXTREMITIES: Non-edematous and not cyanotic. No clubbing. Good capillary refill. Vital Signs (last 8hr) Date Time Temp Pulse Resp B/P (MAP) Pulse Ox O2 Delivery O2 Flow Rate FiO2 10/25/24 11:57 98.8 77 18 127/59 95 Room Air 21 10/25/24 08:15 93 Room Air* 0 21 10/25/24 08:00 98.8 76 19 129/71 93 Room Air 21 LABS: Laboratory: Test 10/25/24 11:06 10/25/24 04:35 10/24/24 14:17 10/24/24 09:51 Range/Units Whole Blood Glucose 134 H 70-110 MG/DL White Blood Count 16.5 #H 4.8-10.8 K/uL Red Blood Count 3.63 L 4.50-6.20 MIL/uL Hemoglobin 11.2 L 14.0-18.0 g/dL Hematocrit 32.4 L 42-54 % Mean Corpuscular Volume 89.3 79-99 fL Mean Corpuscular Hemoglobin 30.9 27.0-33.0 pg Mean Corpuscular Hemoglobin Concent 34.6 32.0-36.0 g/dL Red Cell Distribution Width 13.1 11.0-15.5 % Platelet Count 177 130-400 K/uL Mean Platelet Volume 10.9 H 7.5-10.5 fL Immature Granulocyte % (Auto) 0.5 0-1 % Neutrophils (%) (Auto) 85.5 H 40.0-77.0 % Lymphocytes (%) (Auto) 7.0 L 21.0-51.0 % Monocytes (%) (Auto) 6.8 3.0-13.0 % Eosinophils (%) (Auto) 0.0 0.0-8.0 % Basophils (%) (Auto) 0.2 0.0-5.0 % Neutrophils # (Auto) 14.1 H 1.8-7.7 K/uL Lymphocytes # (Auto) 1.2 1.0-4.8 K/uL Monocytes # (Auto) 1.1 H 0.1-1.0 K/uL Eosinophils # (Auto) 0.00 0.00-0.70 K/uL Basophils # (Auto) 0.03 0.00-0.20 K/uL Absolute Immature Granulocyte (auto 0.09 0-1 K/uL Nucleated Red Blood Cells 0.0 0.0-0.19 % White Cell Morphology Comment See comments Sodium Level 142 136-145 mmol/L Potassium Level 4.2 3.5-5.1 mmol/L Chloride Level 105 101-111 mmol/L Carbon Dioxide Level 28 21-32 mmol/L Blood Urea Nitrogen 22 H 7-18 mg/dL Creatinine 1.9 H 0.5-1.3 mg/dL Glomerular Filtration Rate Calc 38 >90 mL/min Random Glucose 231 H 70-105 mg/dL Total Calcium 8.0 L 8.5-10.1 mg/dL C-Reactive Protein, Quantitative 23.10 H 0.5-3.0 mg/L Procalcitonin 0.28 0.05-0.5 ng/mL Lactic Acid Level 1.3 0.8-2.5 mmol/L HIV (1&2) Antibody Non-Reactive Negative HIV P24 Antigen, Qualitative Non-Reactive Negative Test 10/24/24 04:37 10/24/24 04:29 Range/Units Erythrocyte Sedimentation Rate 13 0-20 MM/HR Reticulocyte Count (auto) 1.67756 0.42-2.23 % Immature Reticulocyte Fraction 6.00 H 0.18-0.48 % Prothrombin Time 10.2 9.6-11.6 SEC Prothromb Time International Ratio 0.96 0.85-1.15 Activated Partial Thromboplast Time 27.2 26.3-35.5 SEC Hemoglobin A1c 7.9 H 4.0-6.0 % Estimated Average Glucose (eAG) 180 H 70-126 mg/dL Phosphorus Level 4.0 2.5-4.9 mg/dL Magnesium Level 1.70 L 1.80-2.40 mg/dL Iron Level 42 L 65-175 mcg/dL Total Iron Binding Capacity 173 L 250-450 mcg/dL Percent Iron Saturation 24.2 L 30-44 % Ferritin 82 30-400 ng/mL Total Bilirubin 0.5 0.2-1.0 mg/dL Aspartate Amino Transf (AST/SGOT) 21 10-37 U/L Alanine Aminotransferase (ALT/SGPT) 20 12-78 U/L Alkaline Phosphatase 156 H 50-136 U/L Total Protein 6.4 6.0-8.3 g/dL Albumin 2.9 L 3.5-5.0 g/dL Triglycerides Level 35 30-200 mg/dL Cholesterol Level 180 <200 mg/dL LDL Cholesterol 116 H 0-99 mg/dL HDL Cholesterol 59 29-71 mg/dL Vitamin B12 Level 310 193-986 pg/mL Thyroid Stimulating Hormone (TSH) 2.38 0.36-3.74 uIU/mL Urine Color RED YELLOW Urine Appearance TURBID CLEAR Urine pH 6.0 5.0-8.0 Urine Specific [place] 1.014 1.001-1.031 Urine Protein 100 H NEGATIVE mg/dL Urine Glucose (UA) 500 H NEGATIVE mg/dL Urine Ketones NEGATIVE NEGATIVE mg/dL Urine Occult Blood LARGE H NEGATIVE Urine Nitrate NEGATIVE NEGATIVE Urine Bilirubin NEGATIVE NEGATIVE mg/dL Urine Urobilinogen 0.2 0.2-1.0 mg/dL Urine Leukocyte Esterase 75 H NEGATIVE Jhonatan/uL Urine RBC TNTC H 0-1 /HPF Urine WBC 26-50 H 0-1 /HPF Urine Bacteria FEW None Seen /HPF Current Medications Medications (Trade) Dose Ordered Sig/Robel Route PRN Reason Start Time Stop Time Status Last Admin Dose Admin Acetaminophen (TYLenol 325MG TAB) 650 mg Q4H PRN PO TEMPERATURE GREATER THAN 101.5 10/24/24 08:30 11/23/24 08:29 Acetaminophen (TYLenol 500MG TAB) 500 mg Q6H PRN PO MILD PAIN (1-3) 10/24/24 08:30 11/23/24 08:29 Aspirin (Aspirin 81mg Ec Tab) 81 mg DAILY PO 10/24/24 09:00 11/23/24 08:59 10/25/24 08:20 81 MG Atorvastatin Calcium (LIPItor 40MG) 40 mg HS PO 10/25/24 21:00 11/24/24 20:59 Ceftriaxone Sodium (ROCEphine 1G INJ) 1 gm Q24H IVPB 10/25/24 08:00 11/04/24 07:59 10/25/24 08:15 1 GM Ceftriaxone Sodium (ROCEphine 1G INJ) 1 gm Q24H IVPB 10/25/24 08:30 10/24/24 09:46 DC Dextrose (D50w) 50 ml AD PRN IV HYPOGLYCEMIA PROTOCOL 10/24/24 08:30 11/23/24 08:29 Famotidine (Pepcid 20mg Vial) 20 mg BID IV 10/24/24 09:00 10/25/24 07:43 DC 10/24/24 20:49 20 MG Famotidine (Pepcid 20mg Vial) 20 mg Q48H IV 10/26/24 21:00 11/23/24 08:59 Glucagon (Glucagon 1mg Kit) 1 mg AD PRN IM HYPOGLYCEMIA PROTOCOL 10/24/24 08:30 11/23/24 08:29 Hydromorphone HCl (DiLAUDid 0.5MG INJ) 0.5 mg Q6H PRN IVP SEVERE PAIN (7-10) 10/24/24 08:30 10/29/24 08:29 Insulin Human Regular (humuLIN R 100 UNIT/ML 3ML) INSULIN SLIDING SCAL... ACHS SQ 10/24/24 11:30 11/23/24 11:29 10/25/24 06:07 3 UNIT Magnesium Sulfate 50 ml @ 0 mls/hr PROTOCOL PRN IV mgprotocol 10/24/24 08:30 11/23/24 08:29 10/25/24 06:03 25 MLS/HR Morphine Sulfate (morPHINE 2MG SYG) 1 mg Q4H PRN IVP MODERATE PAIN (4-6) 10/24/24 08:30 10/31/24 08:29 Ondansetron HCl (zoFRAN 4MG INJ) 4 mg Q6H PRN IVP NAUSEA/VOMITING 10/24/24 10:00 11/23/24 09:59 Piperacillin Sod/ Tazobactam Sod (Zosyn 3.375gm+NS 50ml) 3.375 gm Q8H IVPB 10/24/24 10:00 10/25/24 07:41 DC 10/25/24 02:06 3.375 GM Potassium Chloride 100 ml @ 50 mls/hr AD PRN IV POTASSIUM PROTOCOL 10/24/24 08:30 10/24/24 09:51 DC Potassium Chloride 100 ml @ 100 mls/hr AD PRN IV POTASSIUM PROTOCOL 10/24/24 08:30 11/23/24 08:29 Potassium Chloride (K-Dur/Klor-Con 20meq) 20 meq AD PRN PO POTASSIUM PROTOCOL 10/24/24 08:30 11/23/24 08:29 Potassium Chloride (KCl 10% Elixir 20meq/15ml) 20 meq AD PRN PO POTASSIUM PROTOCOL 10/24/24 08:30 11/23/24 08:29 Sodium Chloride 1,000 ml @ 110 mls/hr Q9H6M IV 10/24/24 08:30 11/23/24 08:29 10/24/24 18:05 110 MLS/HR Sodium Chloride (NS 50ml) 50 ml AD IV 10/24/24 10:00 10/24/24 09:51 DC Tamsulosin HCl (FloMAX) 0.4 mg DAILY PO 10/24/24 10:00 11/23/24 09:59 10/25/24 08:20 0.4 MG DIAGNOSTICS / RADIOLOGY: [facility] [place] [address] [place] [address] IMAGING REPORT Signed PATIENT: ZAFAR WALDRON MR#: [id number] : 1955 SEX: M AGE: 69 LOCATION: 3AH ORDER [id number] STATUS: ADM IN REPORT#: [id number] SERVICE 0815 REASON: rule out cholecystitis ORDERING PHYSICIAN: CITLALY ELISE MD PROCEDURE: HIDAWO - NM HIDA WO EF/CCK Examination Hepatobiliary study History RUQ Pain Technique Tc-99m mebrofenin were administered intravenously followed by acquisition of planar images of the abdomen. Findings Following administration of radiotracer, there is prompt appearance of normal hepatic contours, followed by appearance of activity in unremarkable appearing bile ducts. There is prompt filling of the gallbladder. The study is negative for acute cholecystitis. IMPRESSION: Negative HIDA study. No evidence of cholecystitis. /[place] DICTATED BY: JORGE SHEPHERD Jr., MD DATE: 10/25/24649 ELECTRONICALLY SIGNED BY: JORGE SHEPHERD Jr., MD DATE: 10/25/[address] [address] IMAGING REPORT Signed PATIENT: ZAFAR WALDRON MR#: [id number] : 1955 SEX: M AGE: 69 LOCATION: 3AH ORDER [id number] STATUS: ADM IN REPORT#: [id number] SERVICE 1545 REASON: PAD ORDERING PHYSICIAN: JUANY LITTLE PROCEDURE: ART B LE - US ARTERIAL BILAT LOW EXT DUPL EXAMINATION: DUPLEX ULTRASOUND EXAMINATION OF THE BILATERAL LOWER EXTREMITY ARTERIES. CLINICAL HISTORY: PAD. COMPARISON: None. FINDINGS: Peak systolic velocities within the right lower arteries are as follows: Common femoral artery: 101 cm/s. Superficial femoral artery: 88 cm/s at proximal, 76 cm/s at mid, and 80 cm/s at distal segments. Popliteal artery: 51 cm/s at proximal and 92 cm/s at distal segments. Posterior tibial artery: 76 cm/s. Anterior tibial artery: 30 cm/s. Dorsalis pedis artery: 25 cm/s. The right lower limb arteries demonstrate triphasic to biphasic waveforms in all arteries except the anterior tibial, posterior tibial, and dorsalis pedis arteries which demonstrate monophasic waveforms. Peak systolic velocities within the left lower arteries are as follows: Common femoral artery: 68 cm/s. Superficial femoral artery: 113 cm/s at proximal, 93 cm/s at mid, and 81 cm/s at distal segments. Popliteal artery: 44 cm/s at proximal and 73 cm/s at distal segments. Posterior tibial artery: 42 cm/s. Anterior tibial artery: 109 cm/s. Dorsalis pedis artery: 80 cm/s. The left lower limb arteries demonstrate biphasic to monophasic waveforms in all arteries. There is intimal wall thickening in both the lower limb arteries. IMPRESSION: Mild intimal wall thickening in both the lower limb arteries. The right lower limb arteries demonstrate triphasic to biphasic waveforms in all arteries except the anterior tibial, posterior tibial, and dorsalis pedis arteries which demonstrate monophasic waveforms. The left lower limb arteries demonstrate biphasic to monophasic waveforms in all arteries. No flow limiting lesions. /[place] DICTATED BY: JORGE SHEPHERD Jr., MD DATE: 10/25/24636 ELECTRONICALLY SIGNED BY: JORGE SHEPHERD Jr., MD DATE: 10/25/24636 ASSESSMENT: Hematuria possibly secondary to Nephrolithiasis Possible Acute Kidney Injury Urinary tract infection Possible cholecystitis Hypomagnesemia Diabetes mellitus type 2 Normocytic anemia PLAN: Hematuria possibly secondary to Nephrolithiasis, Urinary tract infection Discontinued Zosyn 3.37 q8h and ordered Ceftriaxone 1g. Patient continued on fluids with NS 110 mL/hour Pain medication as needed with morphine Urology has been consulted on the case due to hematuria and he recommended Culture specific IV antibiotics,IV hydration and Follow up with PCP as an outpatient for referral to Urology for diagnostic cystoscopy. Patient will be started on tamsulosin 0.4 daily ordered CRP and procalcitonin. Possible J LUIS GFR is 38, BUN 22 and creatinine is 1.9 ordered urinary electrolytes, urinary creatinine for further evaluation Maintain proper hydration Possible cholecystitis Patient is started on Zosyn no evidence of cholelithiasis in HIDA scan General surgery consulted on the case Hypomagnesemia Electrolyte to be repleted according to the protocol DVT prophylaxis with SCDs GI prophylaxis with famotidine 20 mg IV b.i.d. Per the course of hospitalization depending on urology recommendations and clinical response ATTESTATION BY PHYSICIAN I have seen and examined the patient. I reviewed the documentation, medical decision making, and treatment plan as noted by the resident provider above. I agree with the findings and plan of care. Rafita Quiroz MD, LAKSHMI MD Oct 25, 2024 15:04
--- NOTE | 2024-10-25 15:44 | HMCIMG ---
EXAMINATION: ULTRASOUND OF THE DUPLEX SCAN OF MESENTERIC AND CELIAC ARTERIES. CLINICAL HISTORY: PAD. COMPARISON: CT abdomen and pelvis without contrast from the same day. TECHNIQUE: Real-time grayscale ultrasound images of the abdomen. FINDINGS: The velocities are: Proximal aorta are 70 cm/s. Celiac artery: 144 cm/s. Superior mesenteric artery: 205 cm/s. Inferior mesenteric artery: 203 cm/s. Celiac and superior mesenteric arteries are partially obscured by bowel gas. Raised velocities in the superior and inferior mesenteric arteries. IMPRESSION: Raised velocities in the superior and inferior mesenteric arteries. Recommend CT abdomen angiogram. /[place]
[2024-10-26 03:43] VITALS: BP 141/72; PULSE 92; RESP 17; TEMP 97.6
[2024-10-26 04:57] LABS: IMMATURE GRANULOCYTE ABSOLUTE 0.14 K/uL (0-1); NUCLEATED RED BLOOD CELLS 0.0 % (0.0-0.19); PLATELET COUNT (AUTO) 166 K/uL (130-400); RED BLOOD CELL COUNT(AUTO) 3.34 MIL/uL (4.50-6.20); RED CELL DISTRIBUTION WIDTH 13.2 % (11.0-15.5); WHITE BLOOD COUNT (AUTO) 15.9 K/uL (4.8-10.8)
[2024-10-26 05:08] LABS: CREATININE 2.3 mg/dL (0.5-1.3); GLOMERULAR FILTR. RATE CALC 30.0 mL/min (>90); GLUCOSE,RANDOM 131.0 mg/dL (70-105); SODIUM SERUM 139.0 mmol/L (136-145); UREA NITROGEN, BLOOD 30.0 mg/dL (7-18)
--- NOTE | 2024-10-26 07:18 | PN ---
[facility] Cardiology Progress Note CARDIOLOGY PROGRESS NOTE October Problems: 1. Abdominal pain 2. Cholelithiasis with normal HIDA scan 3. Peripheral arterial disease 4. Diabetes mellitus type 2 not on treatment at the time of admission 5. Dyslipidemia 6. Acute kidney disease with creatinine rising from 1.1-2.3 7. Nephrolithiasis of the left lower renal pole Blood pressure this morning is running 120-140 systolic heart rate is in the 80s. The patient is afebrile. White count is elevated at 15.9 hemoglobin 10.6 platelet count [id number]. Potassium 4.1 BUN 30 creatinine 2.3 up from 1.1 on admission. The patient continues on aspirin atorvastatin famotidine insulin scale antibiotics and tamsulosin. 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 Velocities are below 300. He does have significant peripheral arterial disease and some claudication. Given his presentation with the abdominal pain we will recommend deferring further intervention on his peripheral arterial disease for now and have him follow up as an outpatient to consider an aortic runoff study once his renal function has stabilized. The patient will continue with atorvastatin and aspirin in the interim. We will recommend some hydration to see if his renal function improves. Further evaluation of his acute renal insufficiency as per the medical service. The patient can follow up with me as an outpatient for further evaluation of his JYOTSNA STEVENS MD Oct 26, 2024 07:18
[2024-10-26] MEDS: 0.9% NACL 500ML IV.SOLN 500 ML IV SCH (07:40)
[2024-10-26 08:00] VITALS: BP 133/67; PULSE 83; RESP 18; TEMP 99.3
[2024-10-26 08:52] VITALS: O2SAT 97
--- NOTE | 2024-10-26 10:34 | PN ---
[facility] PROGRESS NOTE Date of Service: Oct 26, 2024 Time of Service: 10:20 SUBJECTIVE: Patient is a 69-year-old male with past medical history of diabetes mellitus type 2 came to the ED with chief complaint of lower abdominal pain, hematuria since last night. Patient complains of lower abdominal pain which does not have any aggravating or relieving factors and does not radiate since 1 day, patient denies fever, chills, headache, diarrhea, vomiting, pain or burning sensation with urination. Patient has associated nausea. He told that he never saw a doctor in last 7 years and does not take any medications for the diabetes mellitus. Patient never had any history of renal stones, blood in the urine. On arrival to the ED patient vitals temperature 98.2, heart rate 98, respiratory rate 18, blood pressure 169/99, saturating at 98% on room air. On labs patient white blood count 8.9, hemoglobin 11.8 And chemistries shows sodium 143, potassium 3.7, BUN 15, creatinine 1.1 , urinalysis shows glucosuria proteinuria and mild UTI with large occult blood. Patient received 2 g IV Rocephin, morphine 2 mg, IV fluid with LR 1000 mL in the ED . CT abdomen pelvis revealed cholelithiasis with mildly hydropic gallbladder which recommended ultrasound correlation to rule out acute cholecystitis and ultrasound abdomen showed cholelithiasis and biliary sludge with marked gallbladder distention recommended HIDA scan to rule out cholecystitis Small bilateral pleural effusions Punctate nonobstructive calculus in the left renal lower pole and nonspecific hyperdensity in the medullary per minute at the left renal upper pole. Patient is being admitted with a diagnosis of possible nephrolithiasis, possible cholecystitis. 10.25.2024 Patient was seen at bedside in room 304, patient denied any Abdominal pain and physical examination could not be performed as the patient was asleep and did no t respond to attempts to awaken. Further history could not be obtained as the patient appeared irritable due to poor sleep and reported frequent awakening throughout the night. labs- WBC 8.9 to 16.5, BUN-22, creatinine - 1,9, GFR- 38, random glucose- 231, HbA1c- 7.9, Mg- 1.7. HIDA scan showed no evidence of cholecystitis. Arterial ultrasound- mild intimal wall thickening in both lower limbs. Urinary creatinine, FeNa , CRP ,and procalcitonin have been ordered to further evaluate for underlying Acute kidney injury or potential infectious cause. 10.26.2024 Patient was seen at bedside in room 304, patient denied any Abdominal pain , hematuria, dysuria or any other urinary symptoms. patient denies fever, chills, headache, diarrhea, vomiting. labs: WBC- 15.9, BUN- 30, creatinine- 2.3, GFR- 30, calcium0 7.6, glucose- 140, CRP- 23.20, procalcitonin- 0.28. urinary creatinine, urine electrolytes results are pending. Duplex scan of mesenteric and celiac arteries showed raised velocities in s uperior and inferior mesenteric arteries, patient will be advised to follow up with logistics planning engineer. Possible Acute Kidney Injury to be further evaluated, ordered VINCE profile, Anti- DNA double stranded antibody , Complement c3 and c4 and Anti- Neutrophil cytoplasmic antibodies. Nephrology consult has been ordered. Possible concern about possible infection, ordered blood culture and prescribed levofloxacin 750mg iv q48H ROBEL. REVIEW OF SYSTEMS CONSTITUTIONAL: Denies fevers, chills, or night sweats. No unintentional weight loss reported. CARDIOVASCULAR: Denies any exertional angina, dyspnea on exertion, orthopnea, paroxysmal nocturnal dyspnea, palpitations, life-threatening arrhythmias, cla udication. PULMONARY: Denies any shortness of breath, cough, phlegm/sputum, hemoptysis, pleuritic chest pain. GASTROINTESTINAL: Denies any type of dysphagia to either liquids or solids. Denies vomiting, pyrosis, early satiety, diarrhea, constipation, or changes in stool consistency or caliber. Denies coffee-ground emesis, hematemesis, hematochezia, or melanotic stools. patient denies abdominal pain. GENITOURINARY: Denies frequency, urgency, nocturia, incontinence (Storage/Irritative symptoms.) Low urinary stream, straining to void, urinary intermittency or hesitancy, splitting of the voiding stream, terminal dribbling. ENDOCRINOLOGIC: Denies polyuria, polydipsia, polyphagia or heat/cold intolerances. PHYSICAL EXAM GENERAL APPEARANCE: Alert, awake and oriented to time, place and person. CHEST: Normal chest expansion. Telemetry. LUNGS: Absence of any rales, rhonchi or any wheezing. CARDIOVASCULAR: Regular. S1 and S2 normal. No appreciable rubs, murmurs or gallops. ABDOMEN: Soft, , and nondistended. There is no rebound, voluntary guarding, or rigidity. EXTREMITIES: Non-edematous and not cyanotic. No clubbing. Good capillary refill. Vital Signs (last 8hr) Date Time Temp Pulse Resp B/P (MAP) Pulse Ox O2 Delivery O2 Flow Rate FiO2 10/26/24 08:00 99.3 83 18 133/67 97 Room Air 10/26/24 03:43 97.5 92 17 141/72 93 Room Air LABS: Laboratory: Test 10/26/24 05:15 10/26/24 04:32 10/25/24 04:35 10/24/24 14:17 Range/Units Whole Blood Glucose 140 H 70-110 MG/DL White Blood Count 15.9 H 4.8-10.8 K/uL Red Blood Count 3.34 L 4.50-6.20 MIL/uL Hemoglobin 10.6 L 14.0-18.0 g/dL Hematocrit 29.7 L 42-54 % Mean Corpuscular Volume 88.9 79-99 fL Mean Corpuscular Hemoglobin 31.7 27.0-33.0 pg Mean Corpuscular Hemoglobin Concent 35.7 32.0-36.0 g/dL Red Cell Distribution Width 13.2 11.0-15.5 % Platelet Count 166 130-400 K/uL Mean Platelet Volume 11.2 H 7.5-10.5 fL Immature Granulocyte % (Auto) 0.9 0-1 % Neutrophils (%) (Auto) 88.5 H 40.0-77.0 % Lymphocytes (%) (Auto) 3.9 L 21.0-51.0 % Monocytes (%) (Auto) 6.5 3.0-13.0 % Eosinophils (%) (Auto) 0.0 0.0-8.0 % Basophils (%) (Auto) 0.2 0.0-5.0 % Neutrophils # (Auto) 14.1 H 1.8-7.7 K/uL Lymphocytes # (Auto) 0.6 L 1.0-4.8 K/uL Monocytes # (Auto) 1.0 0.1-1.0 K/uL Eosinophils # (Auto) 0.00 0.00-0.70 K/uL Basophils # (Auto) 0.03 0.00-0.20 K/uL Absolute Immature Granulocyte (auto 0.14 0-1 K/uL Nucleated Red Blood Cells 0.0 0.0-0.19 % Sodium Level 139 136-145 mmol/L Potassium Level 4.1 3.5-5.1 mmol/L Chloride Level 105 101-111 mmol/L Carbon Dioxide Level 25 21-32 mmol/L Blood Urea Nitrogen 30 H 7-18 mg/dL Creatinine 2.3 H 0.5-1.3 mg/dL Glomerular Filtration Rate Calc 30 >90 mL/min Random Glucose 131 H 70-105 mg/dL Total Calcium 7.6 L 8.5-10.1 mg/dL C-Reactive Protein, Quantitative 66.70 H 0.5-3.0 mg/L Procalcitonin 0.48 0.05-0.5 ng/mL White Cell Morphology Comment See comments Lactic Acid Level 1.3 0.8-2.5 mmol/L Current Medications Medications (Trade) Dose Ordered Sig/Robel Route PRN Reason Start Time Stop Time Status Last Admin Dose Admin Acetaminophen (TYLenol 325MG TAB) 650 mg Q4H PRN PO TEMPERATURE GREATER THAN 101.5 10/24/24 08:30 11/23/24 08:29 Acetaminophen (TYLenol 500MG TAB) 500 mg Q6H PRN PO MILD PAIN (1-3) 10/24/24 08:30 11/23/24 08:29 Aspirin (Aspirin 81mg Ec Tab) 81 mg DAILY PO 10/24/24 09:00 11/23/24 08:59 10/26/24 08:52 81 MG Atorvastatin Calcium (LIPItor 40MG) 40 mg HS PO 10/25/24 21:00 11/24/24 20:59 10/25/24 20:45 40 MG Ceftriaxone Sodium (ROCEphine 1G INJ) 1 gm Q24H IVPB 10/25/24 08:00 10/26/24 08:58 DC 10/26/24 08:52 1 GM Ceftriaxone Sodium (ROCEphine 1G INJ) 1 gm Q24H IVPB 10/25/24 08:30 10/24/24 09:46 DC Dextrose (D50w) 50 ml AD PRN IV HYPOGLYCEMIA PROTOCOL 10/24/24 08:30 11/23/24 08:29 Famotidine (Pepcid 20mg Vial) 20 mg BID IV 10/24/24 09:00 10/25/24 07:43 DC 10/24/24 20:49 20 MG Famotidine (Pepcid 20mg Vial) 20 mg Q48H IV 10/26/24 21:00 11/23/24 08:59 Glucagon (Glucagon 1mg Kit) 1 mg AD PRN IM HYPOGLYCEMIA PROTOCOL 10/24/24 08:30 11/23/24 08:29 Hydromorphone HCl (DiLAUDid 0.5MG INJ) 0.5 mg Q6H PRN IVP SEVERE PAIN (7-10) 10/24/24 08:30 10/29/24 08:29 Insulin Human Regular (humuLIN R 100 UNIT/ML 3ML) INSULIN SLIDING SCAL... ACHS SQ 10/24/24 11:30 11/23/24 11:29 10/25/24 16:36 6 UNIT Levofloxacin/ Dextrose (LEvaquIN 750 MG/ D5W 150 ML) 750 mg Q48H IV 10/26/24 09:00 11/05/24 08:59 10/26/24 10:08 750 MG Magnesium Sulfate 50 ml @ 0 mls/hr PROTOCOL PRN IV mgprotocol 10/24/24 08:30 11/23/24 08:29 10/25/24 06:03 25 MLS/HR Morphine Sulfate (morPHINE 2MG SYG) 1 mg Q4H PRN IVP MODERATE PAIN (4-6) 10/24/24 08:30 10/31/24 08:29 Ondansetron HCl (zoFRAN 4MG INJ) 4 mg Q6H PRN IVP NAUSEA/VOMITING 10/24/24 10:00 11/23/24 09:59 Piperacillin Sod/ Tazobactam Sod (Zosyn 3.375gm+NS 50ml) 3.375 gm Q8H IVPB 10/24/24 10:00 10/25/24 07:41 DC 10/25/24 02:06 3.375 GM Potassium Chloride 100 ml @ 50 mls/hr AD PRN IV POTASSIUM PROTOCOL 10/24/24 08:30 10/24/24 09:51 DC Potassium Chloride 100 ml @ 100 mls/hr AD PRN IV POTASSIUM PROTOCOL 10/24/24 08:30 11/23/24 08:29 Potassium Chloride (K-Dur/Klor-Con 20meq) 20 meq AD PRN PO POTASSIUM PROTOCOL 10/24/24 08:30 11/23/24 08:29 Potassium Chloride (KCl 10% Elixir 20meq/15ml) 20 meq AD PRN PO POTASSIUM PROTOCOL 10/24/24 08:30 11/23/24 08:29 Sodium Chloride 500 ml @ 50 mls/min Q10M IV 10/26/24 07:30 11/25/24 07:29 10/26/24 07:40 50 MLS/MIN Sodium Chloride 1,000 ml @ 110 mls/hr Q9H6M IV 10/24/24 08:30 10/26/24 07:26 DC 10/25/24 20:45 110 MLS/HR Sodium Chloride (NS 50ml) 50 ml AD IV 10/24/24 10:00 10/24/24 09:51 DC Tamsulosin HCl (FloMAX) 0.4 mg DAILY PO 10/24/24 10:00 11/23/24 09:59 10/26/24 08:52 0.4 MG DIAGNOSTICS / RADIOLOGY: [place] [address] IMAGING REPORT Signed PATIENT: ZAFAR WALDRON MR#: [id number] : 1955 SEX: M AGE: 69 LOCATION: 3AH ORDER 1551 STATUS: [facility]M [facility] REPORT#: [id number] SERVICE 1545 REASON: PAD ORDERING PHYSICIAN: JUANY LITTLE PROCEDURE: MESENTERIC - US MESENTERIC EXAMINATION: ULTRASOUND OF THE DUPLEX SCAN OF MESENTERIC AND CELIAC ARTERIES. CLINICAL HISTORY: PAD. COMPARISON: CT abdomen and pelvis without contrast from the same day. TECHNIQUE: Real-time grayscale ultrasound images of the abdomen. FINDINGS: The velocities are: Proximal aorta are 70 cm/s. Celiac artery: 144 cm/s. Superior mesenteric artery: 205 cm/s. Inferior mesenteric artery: 203 cm/s. Celiac and superior mesenteric arteries are partially obscured by bowel gas. Raised velocities in the superior and inferior mesenteric arteries. IMPRESSION: Raised velocities in the superior and inferior mesenteric arteries. Recommend CT abdomen angiogram. /[place] DICTATED BY: JELANI FERGUSON MD DATE: 10/25/241642 ELECTRONICALLY SIGNED BY: JELANI FERGUSON MD DATE: 10/25/241642 ASSESSMENT: Hematuria possibly secondary to Nephrolithiasis Acute Kidney Injury possibly due to ATN Urinary tract infection Cholecystitis ruled out Hypomagnesemia Diabetes mellitus type 2 Normocytic anemia PLAN: Hematuria possibly secondary to Nephrolithiasis, Urinary tract infection Discontinued other antibiotics and started on levofloxacin 750 mg Q48H ROBEL - Day 1 - Urine culture grew staphylococcus aureus (>1,00,000 CFU/ml) Patient continued on fluids with NS 110 mL/hour Pain medication as needed with morphine Urology has been consulted on the case due to hematuria and he recommended Culture specific IV antibiotics,IV hydration and Follow up with PCP as an outpatient for referral to Urology for diagnostic cystoscopy. Patient started on tamsulosin 0.4 daily CRP-23.10 and procalcitonin-0.28. J LUIS due to ATN GFR is 38 to 30, BUN 22 to 30 and creatinine is 1.9 to 2.3 ordered VINCE profile, Anti- DNA double stranded antibody , Complement c3 and c4 and Anti- Neutrophil cytoplasmic antibodies. Nephrology consult has been ordered. ordered urine electrolytes, urinary creatinine for further evaluation, waiting for the results. Maintain proper hydration Cholecystitis ruled out Patient is started on Zosyn no evidence of cholelithiasis in HIDA scan General surgery consulted on the case Hypomagnesemia Electrolytes replenished according to the protocol DVT prophylaxis with SCDs GI prophylaxis with famotidine 20 mg IV b.i.d. Per the course of hospitalization depending on urology recommendations and clinical response ATTESTATION BY PHYSICIAN I have seen and examined the patient. I reviewed the documentation, medical decision making, and treatment plan as noted by the resident provider above. I agree with the findings and plan of care. Rafita Quiroz MD, LAKSHMI MD Oct 26, 2024 10:34
--- NOTE | 2024-10-26 11:28 | CONS ---
GENERAL SURGERY CONSULTATION NOTE DATE OF CONSULTATION: Oct 26, 2024 TIME OF CONSULTATION: 11:27 CONSULTING SERVICE: Branden Geronimo MD REQUESTING PHYSICAIN: [ ] REASON FOR CONSULTATION: [ ] CHOLELITHIASIS HISTORY OF PRESENT ILLNESS: [ ] 69-YEAR-OLD MALE WHO PRESENTED WITH HEMATURIA AND LOWER ABDOMINAL PAIN PATIENT DENIED ANY FEVER NAUSEA BUT NO VOMITING HE IS WORKUP INCLUDING A CT SCAN SHOWED EVIDENCE OF CHOLELITHIASIS PATIENT DENIED ANY UPPER ABDOMINAL PAIN SYMPTOMS PAST MEDICAL HISTORY: [ ] DIABETES PAST SURGICAL HISTORY: [ ] NONE FAMILY HISTORY: [ ] NO FAMILY HISTORY OF HYPERTENSION OR DIABETES SOCIAL HISTORY: [ ] NO SMOKING NO ALCOHOL Current Medications Medications (Trade) Dose Ordered Sig/Robel Route Start Time Stop Time Status Last Admin Dose Admin Aspirin (Aspirin 81mg Ec Tab) 81 mg DAILY PO 10/24/24 09:00 11/23/24 08:59 10/26/24 08:52 81 MG Atorvastatin Calcium (LIPItor 40MG) 40 mg HS PO 10/25/24 21:00 11/24/24 20:59 10/25/24 20:45 40 MG Ceftriaxone Sodium (ROCEphine 1G INJ) 1 gm Q24H IVPB 10/25/24 08:00 10/26/24 08:58 DC 10/26/24 08:52 1 GM Ceftriaxone Sodium (ROCEphine 1G INJ) 1 gm Q24H IVPB 10/25/24 08:30 10/24/24 09:46 DC Famotidine (Pepcid 20mg Vial) 20 mg BID IV 10/24/24 09:00 10/25/24 07:43 DC 10/24/24 20:49 20 MG Famotidine (Pepcid 20mg Vial) 20 mg Q48H IV 10/26/24 21:00 11/23/24 08:59 Insulin Human Regular (humuLIN R 100 UNIT/ML 3ML) INSULIN SLIDING SCAL... ACHS SQ 10/24/24 11:30 11/23/24 11:29 10/25/24 16:36 6 UNIT Levofloxacin/ Dextrose (LEvaquIN 750 MG/ D5W 150 ML) 750 mg Q48H IV 10/26/24 09:00 11/05/24 08:59 10/26/24 10:08 750 MG Piperacillin Sod/ Tazobactam Sod (Zosyn 3.375gm+NS 50ml) 3.375 gm Q8H IVPB 10/24/24 10:00 10/25/24 07:41 DC 10/25/24 02:06 3.375 GM Sodium Chloride 500 ml @ 50 mls/min Q10M IV 10/26/24 07:30 11/25/24 07:29 10/26/24 07:40 50 MLS/MIN Sodium Chloride 1,000 ml @ 110 mls/hr Q9H6M IV 10/24/24 08:30 10/26/24 07:26 DC 10/25/24 20:45 110 MLS/HR Sodium Chloride (NS 50ml) 50 ml AD IV 10/24/24 10:00 10/24/24 09:51 DC Tamsulosin HCl (FloMAX) 0.4 mg DAILY PO 10/24/24 10:00 11/23/24 09:59 10/26/24 08:52 0.4 MG Allergies: Coded Allergies: No Known Allergies (Unverified Allergy, Unknown, 07/09/14) REVIEW OF SYSTEMS: DRYWALL FOREMAN: [Denies headaches or blurring of vision.] RESP: [No cough, chest pain or SOB.] CVS: [No palpitaions.] GI: [LOWER abdominal pain WITH NAUSEA SEB: [HEMATURIA Musculoskeletal: [No swelling or joint pain.] BACK: [No pain or swelling.] All other systems are reviewed and essentially negative pertinent positives in HPI. PHYSICAL EXAMINATION: GENERAL: [Patient is lying comfortably in bed, not in any obvious distress.] HEAD: [Normal with no signs of head trauma.] EYES: [Not pale not jaundiced afebrile to touch.] ENT: [ Normal.] NECK: [Supple,no tenderness,no lymphadenopathy,no masses,no thyromegaly ,no bruits, no JVD.] LUNGS: [Clear breath sounds bilaterally. No wheezes, rales, or rhonchi.] HEART: [Regular rate and rhythm. Normal S1 and S2, without murmurs, rub or gallop.] VASC: [No edema. Peripheral pulses normal and equal in all extremities.] ABD: [Bowel sounds present,soft, NONTENDER] : [Normal, no suprapubic tenderness.] LYMPH: [No lymphadenopathy noted.] EXT: [ Warm soft, non tender.] SKIN: [ No rashes or lesions.] NEURO: [ Awake Alert and oriented x3.] Vital Signs (last 8hr) Date Time Temp Pulse Resp B/P (MAP) Pulse Ox O2 Delivery O2 Flow Rate FiO2 10/26/24 08:00 99.3 83 18 133/67 97 Room Air 10/26/24 03:43 97.5 92 17 141/72 93 Room Air LABORATORY: [ ] Hematology Labs: Test 10/26/24 04:32 10/25/24 04:35 Range/Units White Blood Count 15.9 H 4.8-10.8 K/uL Red Blood Count 3.34 L 4.50-6.20 MIL/uL Hemoglobin 10.6 L 14.0-18.0 g/dL Hematocrit 29.7 L 42-54 % Mean Corpuscular Volume 88.9 79-99 fL Mean Corpuscular Hemoglobin 31.7 27.0-33.0 pg Mean Corpuscular Hemoglobin Concent 35.7 32.0-36.0 g/dL Red Cell Distribution Width 13.2 11.0-15.5 % Platelet Count 166 130-400 K/uL Mean Platelet Volume 11.2 H 7.5-10.5 fL Immature Granulocyte % (Auto) 0.9 0-1 % Neutrophils (%) (Auto) 88.5 H 40.0-77.0 % Lymphocytes (%) (Auto) 3.9 L 21.0-51.0 % Monocytes (%) (Auto) 6.5 3.0-13.0 % Eosinophils (%) (Auto) 0.0 0.0-8.0 % Basophils (%) (Auto) 0.2 0.0-5.0 % Neutrophils # (Auto) 14.1 H 1.8-7.7 K/uL Lymphocytes # (Auto) 0.6 L 1.0-4.8 K/uL Monocytes # (Auto) 1.0 0.1-1.0 K/uL Eosinophils # (Auto) 0.00 0.00-0.70 K/uL Basophils # (Auto) 0.03 0.00-0.20 K/uL Absolute Immature Granulocyte (auto 0.14 0-1 K/uL Nucleated Red Blood Cells 0.0 0.0-0.19 % White Cell Morphology Comment See comments Chemistry Labs: Test 10/26/24 05:15 10/26/24 04:32 10/24/24 14:17 Range/Units Whole Blood Glucose 140 H 70-110 MG/DL Sodium Level 139 136-145 mmol/L Potassium Level 4.1 3.5-5.1 mmol/L Chloride Level 105 101-111 mmol/L Carbon Dioxide Level 25 21-32 mmol/L Blood Urea Nitrogen 30 H 7-18 mg/dL Creatinine 2.3 H 0.5-1.3 mg/dL Glomerular Filtration Rate Calc 30 >90 mL/min Random Glucose 131 H 70-105 mg/dL Total Calcium 7.6 L 8.5-10.1 mg/dL C-Reactive Protein, Quantitative 66.70 H 0.5-3.0 mg/L Procalcitonin 0.48 0.05-0.5 ng/mL Lactic Acid Level 1.3 0.8-2.5 mmol/L DIAGNOSTICS / RADIOLOGY: [Copy/Paste Echos/Imaging Report here] ASSESSMENT: [] HEMATURIA CHOLELITHIASIS ASYMPTOMATIC PLAN: Diet NO SURGICAL INTERVENTION AT THIS TIME BRANDEN GERONIMO MD Oct 26, 2024 11:28
[2024-10-26 12:00] VITALS: BP 143/81; PULSE 88; RESP 19; TEMP 98.7
--- NOTE | 2024-10-26 12:41 | CONS ---
REFERRING PHYSICIAN: Rafita Quiroz MD REASON FOR CONSULTATION: Renal failure. HISTORY OF PRESENT ILLNESS: A 69-year-old male with history of diabetes mellitus and hypertension. The patient initially presented with gross hematuria. The patient was found to have prostatitis and was started on the antibiotics. The patient has had worsening renal dysfunction in the hospital with an elevated BUN and creatinine. The patient did receive a dose of Toradol upon admission. The patient also had been on a short course of Zosyn, although both medications have been discontinued. The patient remains on antibiotics and he is being seen as a followup visit for all of the above. PAST MEDICAL HISTORY: Diabetes mellitus and hypertension. SOCIAL HISTORY: He lives independently. No alcohol or tobacco use. FAMILY HISTORY: There is no renal disease in the family. ALLERGIES: No allergies. MEDICATIONS: Noted. PHYSICAL EXAMINATION: VITAL SIGNS: Blood pressure is 133/67, pulse in the 80s, afebrile. GENERAL: He is a chronically ill male, elderly, lying in bed on medical floor. HEENT: Head is atraumatic. Pupils are equal, roving to light. Oropharynx is without exudate. Nares clear. NECK: There is no JVP. There is no thyromegaly. No masses. CARDIOVASCULAR: Regular. There is no S3 or S4 gallop. LUNGS: Coarse with equal thoracic movement. ABDOMEN: Soft, nondistended, nontender. EXTREMITIES: Reveal no clubbing, no cyanosis. NEUROLOGICAL: He is awake. He is alert. He is oriented. SKIN: No rash or nodules. BACK: No CVA tenderness. No back deformities. LABORATORY DATA: Urinalysis reveals protein and glucose in the urine as well as hematuria. Sodium 139, potassium 4, BUN 30, creatinine is 2.3. Hemoglobin 10, hematocrit 29, white count 15,000. CT scan of the abdomen revealed no evidence of obstruction. IMPRESSION: * Acute renal failure. * Hematuria. * Diabetes mellitus. * Hypertension. PLAN: The patient presents to the hospital with worsening renal dysfunction. The patient's Toradol and Zosyn have both been discontinued. The patient continues with IV hydration. Urine output has been adequate. We will repeat the chemistries in the a.m. We will continue to follow the patient closely. We will obtain a bladder scan for completeness and we will follow the patient closely. The patient and family with multiple questions, all of which were all answered. TID: [id number] RECEIPT: [id number]
[2024-10-26 13:55] LABS: CREATININE,URINE RANDOM 20.38 mg/dL (30-135)
[2024-10-26 14:26] LABS: APPEARANCE,URINE CLOUDY (CLEAR); GLUCOSE, URINE (UA) NEGATIVE (NEGATIVE); LEUKOCYTE ESTERASE ,URINE 500 Leu/uL (NEGATIVE); NITRATE,URINE NEGATIVE (NEGATIVE); OCCULT BLOOD,URINE LARGE (NEGATIVE); OTHER CASTS, URINE 8 /LPF (None Seen); WBC CLUMP MANY /HPF (0-1)
--- NOTE | 2024-10-26 15:48 | NUR ---
PATIENT STATES DESIRE TO LEAVE AMA. PATIENT STATES, "I DON'T WANT TO WAIT HERE ANYMORE. I'M NOT STAYING HERE AGAIN TONIGHT". EXPLAINED TO PATIENT THAT, WHILE LEAVING AMA IS NOT ADVISED, PATIENT WOULD NOT BE HELD HERE AGAINST HIS WILL. PATIENT DECIDED TO LEAVE AMA STATING, "IT'S FINE. I'LL SIGN WHATEVER IT IS YOU NEED ME TO DO". NOTIFIED DR. MARINELLI OF PATIENT'S DESIRE TO LEAVE AMA. DR. MARINELLI ARRIVED AND SPOKE TO PATIENT EXPLAINING IMPORTANCE OF STAYING FOR PROPER TREATMENT. PATIENT STATED, "IT'S FINE. I'M NOT STAYING HERE TONIGHT". PROVIDED AMA FORM TO PATIENT. AMA FORM SIGNED.
--- NOTE | 2024-10-26 16:10 | NUR ---
DISCHARGE AMA PERIPHERAL IV REMOVED. DISCHARGED AMA.
[2024-10-26] MEDS ORDERED: FAMOTIDINE 20MG VIAL IV SCH (21:00)
--- NOTE | 2024-10-27 06:52 | DS ---
Discharge Summary Hospital Course Summary: Patient is a 69-year-old male with past medical history of diabetes mellitus type 2 came to the ED with chief complaint of lower abdominal pain, hematuria since last night. Patient complains of lower abdominal pain which does not have any aggravating or relieving factors and does not radiate since 1 day, patient denies fever, chills, headache, diarrhea, vomiting, pain or burning sensation with urination. Patient has associated nausea. He reported that he never saw a doctor in last 7 years and does not take any medications for the diabetes mellitus. Patient never had any history of renal stones, blood in the urine. On arrival to the ED patient vitals temperature 98.2, heart rate 98, respiratory rate 18, blood pressure 169/99 mm Hg, saturating at 98% on room air. On labs patient white blood count 8.9, hemoglobin 11.8, sodium 143, potassium 3.7, BUN 15, creatinine 1.1 , urinalysis shows glucosuria proteinuria and mild UTI with large occult blood. Patient received 2 g IV Rocephin, morphine 2 mg, IV fluids in the ED . CT abdomen pelvis revealed cholelithiasis with mildly hydropic gallbladder which recommended ultrasound correlation to rule out acute cholecystitis and ultrasound abdomen showed cholelithiasis and biliary sludge with marked gallbladder distention recommended HIDA scan to rule out cholecystitis Small bilateral pleural effusions Punctate nonobstructive calculus in the left renal lower pole and nonspecific hyperdensity in the medullary per minute at the left renal upper pole. Patient was admitted with a diagnosis of possible nephrolithiasis, possible cholecystitis. 10.25.2024 Patient was seen at bedside in room 304, patient denied any Abdominal pain, physical examination could not be performed as the patient was asleep and did not respond to attempts to awaken. Further history could not be obtained as the patient appeared irritable due to poor sleep and reported frequent awakening throughout the night. labs- WBC 8.9 to 16.5, BUN-22, creatinine - 1,9, GFR- 38, random glucose- 231, HbA1c- 7.9, Mg- 1.7. HIDA scan showed no evidence of cholecystitis. Arterial ultrasound- mild intimal wall thickening in both lower limbs. Urinary creatinine, Urine electrolytes, CRP ,and procalcitonin have been ordered to further evaluate for underlying Acute kidney injury or potential infectious cause. 10.26.2024 Patient was seen at bedside in room 304, patient denied any Abdominal pain , hematuria, dysuria or any other urinary symptoms. patient denies fever, chills, headache, diarrhea, vomiting. labs: WBC- 15.9, BUN- 30, creatinine- 2.3, GFR- 30, calcium0 7.6, glucose- 140, CRP- 23.20, procalcitonin- 0.28. urinary creatinine, urine electrolytes results are pending. 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 Possible Acute Kidney Injury to be further evaluated, ordered VINCE profile, Anti- DNA double stranded antibody , Complement c3 and c4 and Anti- Neutrophil cytoplasmic antibodies. Nephrology consult has been ordered. Possible concern about infection, ordered blood culture and prescribed levofloxacin 750mg iv q48H KORI. The patient signed out against medical advice. As per the primary nurse the patient does not wish to continue any treatment at this time and is refusing to stay and complete evaluation and disposition. The patient is fully aware of all the risks and benefits of leaving against medical advice. Possible benefits including correction of current medical condition and improvement of symptoms. However, the patient was advised that possible risk of leaving against medical advice including worsening of the current medical condition, including or causing . The patient or caregiver verbalized understanding of the risks and benefits discussed. Despite this, the patient signed out against medical advice. Enterprise Sales Person(s): CONSULTATION REPORT Name: ZAFAR WALDRON Acct: [id number] MR: [id number] : 1955 Admit Date: 10/24/24 [address] [address] [facility] Cardiology Consultation Note Cardiology consult dictated for Kan Cordon MD Date of service 10/24/2024 Chief complaint: Lower abdominal pain, hematuria Reason for consult: PAD History of present illness: 69-year-old male presented for evaluation of lower abdominal pain and hematuria since last night. He was diagnosed with UTI and CT of the abdomen pelvis revealed cholelithiasis with mildly hydropic gallbladder with ultrasound of the abdomen demonstrating cholelithiasis and biliary sludge with marked gallbladder distention and recommendation for HIDA scan. On CT of the abdomen mild calcific atherosclerotic disease in the abdominal aorta and branches noted and this prompted cardiology consult for evaluation of PAD. Past medical history: Positive for diabetes mellitus type 2 , negative for CVA TIA no PE no DVT no liver kidney thyroid disease. Past surgical history: None reported Allergies: No known allergies Social history: Patient denies tobacco alcohol or illicit drug use Review of blood work: CBC with white blood cells of 8.9, hemoglobin 11.8 hematocrit 33.9 and platelets of a 192. Basic metabolic panel with sodium of 143, potassium of 3.7, BUN of 15 creatinine of 1.1 and a GFR of 74. Physical exam: Blood pressure 132/67 heart rate of 67 beats per minute and regular normal S1-S2 no rubs gallops murmurs noted. Neck is supple no jugular vein distention no carotid bruits. Bilateral breath sounds are clear to auscultation lower extremities no edema no cyanosis. Patient is alert awake and oriented. Assessment: Abdominal pain Cholelithiasis Incidental finding CT of the abdomen mild calcific atherosclerotic disease in the abdominal aorta and branches Diabetes mellitus type Plan: At this point we have a patient that is 69 years old presented for evaluation of lower abdominal pain and hematuria he was diagnosed with UTI. On CT of the abdomen there was an incidental finding of mild calcific atherosclerotic disease in the abdominal aorta and branches a. A cardiology consult was requested for evaluation of PAD. He is a diabetic and is experiencing claudication type symptoms. We will schedule bilateral lower extremity arterial Doppler and ultrasound mesenteric and celiac artery. JUANY LITTLE [facility] Oct 24, 2024 15:45 Electronically Signed by: JUANY LITTLE [facility]10/24/24 1547 Electronically Co-Signed by: CONSULTATION REPORT Name: ZAFAR WALDRON Acct: [id number] MR: [id number] : 1955 Admit Date: 10/24/24 JAZMINE YEE MD [place] [address] [place] [id number] REQUESTING PHYSICIAN: Rafita Quiroz MD REASON FOR CONSULTATION: Hematuria. HISTORY OF PRESENT ILLNESS: This is a 69-year-old male admitted to the hospital because of intermittent hematuria and abdominal pain. Noted to have a small lower pole nonobstructing stone in the left lower pole of the kidney and a consultation was requested. The patient encountered lying in bed comfortably. His urine is grossly cleared. He has no more abdominal pain. He feels much improved. ALLERGIES: Apparently none. MEDICATIONS: Include Dilaudid, Tylenol, morphine, IV Rocephin, Glucagon, famotidine, potassium chloride. PAST MEDICAL HISTORY: Significant for diabetes. PAST SURGICAL HISTORY: Apparently negative. FAMILY HISTORY: Negative for kidney stones. SOCIAL HISTORY: The patient is retired from the [employer]. He has 2 children. He does not smoke or drink. REVIEW OF SYSTEMS: He has no shortness of breath or chest pain. His appetite is poor. He has some nausea and vomiting. No constipation or diarrhea. No headaches or dizziness. No nosebleed. No joint pain, joint swelling, limitation of movement, night sweats, fever, chills or skin rash. PHYSICAL EXAMINATION: GENERAL: Well-developed male, in no distress. VITAL SIGNS: Temperature is 98, blood pressure is 121/62 with a pulse of 62. NECK: No adenopathy or supraclavicular masses palpable. LUNGS: Lung lemon are clear to auscultation. HEART: Heart sounds are best heard in the fifth intercostal space. ABDOMEN: Full, soft, nontender. BACK: No CVA tenderness. EXTERNAL GENITALIA AND RECTAL: Deferred. LABORATORY DATA: Shows a white count of 8.9, hematocrit is 33.9, platelet count is 192. Sodium 143, potassium 3.7, BUN and creatinine of 15/1.1. Urinalysis shows clear yellow urine. Specific gravity of 1.014 with pH of 6. The patient has some occult blood in the urine. Leukocyte esterase is positive and a few to no bacteria. IMAGING STUDIES: Reviewed today include a CT scan of the abdomen and pelvis that is significant for a 1 or 2 mm lower pole calculus, nonobstructing and punctate on the left side. No obstructive uropathy identified. Gallbladder stone noted. ASSESSMENT: Hematuria secondary to abdominal pain, improved. RECOMMENDATIONS: * Culture specific IV antibiotics. * IV hydration. * Follow up with PCP as an outpatient for referral to Urology for diagnostic cystoscopy. * The patient's concerns were answered. Currently, the patient has been admitted to the hospital for evaluation of cholecystitis and cholelithiasis concurrently. Evaluation for anemia is also in progress. Thank you for the opportunity of providing consultation on your patient. Sincerely, TID: [id number] RECEIPT: [id number] Electronically Signed by: Electronically Co-Signed by: CONSULTATION REPORT Name: ZAFAR WALDRON Acct: [id number] MR: [id number] : 1955 Admit Date: 10/24/24 ARIC SYKES MD [place] [id number] [place] [id number] REFERRING PHYSICIAN: Rafita Quiroz MD REASON FOR CONSULTATION: Renal failure. HISTORY OF PRESENT ILLNESS: A 69-year-old male with history of diabetes mellitus and hypertension. The patient initially presented with gross hematuria. The patient was found to have prostatitis and was started on the antibiotics. The patient has had worsening renal dysfunction in the hospital with an elevated BUN and creatinine. The patient did receive a dose of Toradol upon admission. The patient also had been on a short course of Zosyn, although both medications have been discontinued. The patient remains on antibiotics and he is being seen as a followup visit for all of the above. PAST MEDICAL HISTORY: Diabetes mellitus and hypertension. SOCIAL HISTORY: He lives independently. No alcohol or tobacco use. FAMILY HISTORY: There is no renal disease in the family. ALLERGIES: No allergies. MEDICATIONS: Noted. PHYSICAL EXAMINATION: VITAL SIGNS: Blood pressure is 133/67, pulse in the 80s, afebrile. GENERAL: He is a chronically ill male, elderly, lying in bed on medical floor. HEENT: Head is atraumatic. Pupils are equal, roving to light. Oropharynx is without exudate. Nares clear. NECK: There is no JVP. There is no thyromegaly. No masses. CARDIOVASCULAR: Regular. There is no S3 or S4 gallop. LUNGS: Coarse with equal thoracic movement. ABDOMEN: Soft, nondistended, nontender. EXTREMITIES: Reveal no clubbing, no cyanosis. NEUROLOGICAL: He is awake. He is alert. He is oriented. SKIN: No rash or nodules. BACK: No CVA tenderness. No back deformities. LABORATORY DATA: Urinalysis reveals protein and glucose in the urine as well as hematuria. Sodium 139, potassium 4, BUN 30, creatinine is 2.3. Hemoglobin 10, hematocrit 29, white count 15,000. CT scan of the abdomen revealed no evidence of obstruction. IMPRESSION: * Acute renal failure. * Hematuria. * Diabetes mellitus. * Hypertension. PLAN: The patient presents to the hospital with worsening renal dysfunction. The patient's Toradol and Zosyn have both been discontinued. The patient continues with IV hydration. Urine output has been adequate. We will repeat the chemistries in the a.m. We will continue to follow the patient closely. We will obtain a bladder scan for completeness and we will follow the patient closely. The patient and family with multiple questions, all of which were all answered. TID: [id number] RECEIPT: [id number] Electronically Signed by: Electronically Co-Signed by: Procedure(s): [place] [address] [place] [id number] IMAGING REPORT Signed PATIENT: ZAFAR WALDRON MR#: [id number] : 1955 SEX: M AGE: 69 LOCATION: ED ORDER 7 STATUS: [facility] REPORT#: [id number] SERVICE 5 REASON: ABD PAIN ORDERING PHYSICIAN: ABNER TAPIA MD PROCEDURE: ABD PEL WO - CT ABDOMEN/PELVIS W/O CONTRAST EXAM: CT Abdomen and Pelvis without IV contrast CLINICAL HISTORY: Pain. TECHNIQUE: Thin collimated axial CT images of the abdomen and pelvis were obtained, with sagittal and coronal reformatted images also submitted. CT scan is done according to ALARA (As Low As Reasonably Achievable). CONTRAST: None. COMPARISON: None. FINDINGS: Small pleural effusions bilaterally. Cholelithiasis with mildly hydropic gallbladder. No focal abnormality within the liver, pancreas, spleen, or adrenals. Punctate nonobstructive calculus in the left renal lower pole. There is mild hyperdensity in the medullary pyramid at the left renal upper pole. Unremarkable right kidney. The urinary bladder is suboptimally distended and grossly unremarkable. The prostate is within normal limits. No obvious bowel wall thickening, dilatation, or obstruction. Unremarkable appendix. Mild calcific atherosclerotic disease in the abdominal aorta and its branches. No pathological lymphadenopathy in the abdomen or pelvis. No ascites or pneumoperitoneum. No acute bony abnormality is evident. Degenerative osseous changes. IMPRESSIONS: Cholelithiasis with mildly hydropic gallbladder. Recommend ultrasound of the gallbladder to rule out acute cholecystitis. Small pleural effusions bilaterally. Punctate nonobstructive calculus in the left renal lower pole. Nonspecific hyperdensity in the medullary pyramid at the left renal upper pole. /[place] DICTATED BY: JORGE SHEPHERD Jr., MD DATE: 10/24/24600 ELECTRONICALLY SIGNED BY: JORGE SHEPHERD Jr., MD DATE: 10/24/[address] [place] [address] IMAGING REPORT Signed PATIENT: ZAFAR WALDRON MR#: [id number] : 1955 SEX: M AGE: 69 LOCATION: [facility] ORDER 6 STATUS: [facility] REPORT#: [id number] SERVICE 5 REASON: RUQ pain ORDERING PHYSICIAN: ABNER TAPIA MD PROCEDURE: ABDRUQLTD - US ABDOMINAL RUQ\LTD EXAM: US Abdomen, Right Upper Quadrant. CLINICAL HISTORY: RUQ pain TECHNIQUE: Right upper quadrant sonography performed with image documentation. COMPARISON: None provided. FINDINGS: Hepatomegaly; the right hepatic lobe measures up to 16.7 cm in the craniocaudal dimension. There is appropriate echogenicity and echotexture of the hepatic parenchyma. The gallbladder is markedly distended, and filled with sludge and stones. There is no gallbladder wall thickening. There is ringdown artifact seen from the fundal wall suggesting adenomyomatosis. There is no pericholecystic free fluid. The common bile duct is normal in caliber, measuring up to 0.3 cm. The right kidney is normal in caliber, measuring up to 10.1 x 5.0 x 4.6 cm. IMPRESSION: 1. Cholelithiasis and biliary sludge with marked gallbladder distention. Gallbladder adenomyomatosis. If there is clinical concern for acute cholecystitis recommend a hepatobiliary (HIDA) scan for further evaluation. 2. Hepatomegaly with right hepatic lobe measuring 16.7 cm. /[place] DICTATED BY: JORGE SHEPHERD Jr., MD DATE: 10/24/24837 ELECTRONICALLY SIGNED BY: JORGE SHEPHERD Jr., MD DATE: 10/24/24837 [place] [id number] IMAGING REPORT Signed PATIENT: ZAFAR WALDRON MR#: [id number] : 1955 SEX: M AGE: 69 LOCATION: [facility] ORDER 6 STATUS: ADM IN REPORT#: [id number] SERVICE REASON: rule out cholecystitis ORDERING PHYSICIAN: CITLALY ELISE MD PROCEDURE: HIDAWO - NM HIDA WO EF/CCK Examination Hepatobiliary study History RUQ Pain Technique Tc-99m mebrofenin were administered intravenously followed by acquisition of planar images of the abdomen. Findings Following administration of radiotracer, there is prompt appearance of normal hepatic contours, followed by appearance of activity in unremarkable appearing bile ducts. There is prompt filling of the gallbladder. The study is negative for acute cholecystitis. IMPRESSION: Negative HIDA study. No evidence of cholecystitis. /[place] DICTATED BY: JORGE SHEPHERD Jr., MD DATE: 10/25/2450 ELECTRONICALLY SIGNED BY: JORGE SHEPHERD Jr., MD DATE: 10/25/2431 [place] [address] [place] [id number] IMAGING REPORT Signed PATIENT: ZAFAR WALDRON MR#: [id number] : 1955 SEX: M AGE: 69 LOCATION: [facility] ORDER 1551 STATUS: ADM IN REPORT#: [id number] SERVICE 1545 REASON: PAD ORDERING PHYSICIAN: JUANY LITTLE PROCEDURE: ART B LE - US ARTERIAL BILAT LOW EXT DUPL EXAMINATION: DUPLEX ULTRASOUND EXAMINATION OF THE BILATERAL LOWER EXTREMITY ARTERIES. CLINICAL HISTORY: PAD. COMPARISON: None. FINDINGS: Peak systolic velocities within the right lower arteries are as follows: Common femoral artery: 101 cm/s. Superficial femoral artery: 88 cm/s at proximal, 76 cm/s at mid, and 80 cm/s at distal segments. Popliteal artery: 51 cm/s at proximal and 92 cm/s at distal segments. Posterior tibial artery: 76 cm/s. Anterior tibial artery: 30 cm/s. Dorsalis pedis artery: 25 cm/s. The right lower limb arteries demonstrate triphasic to biphasic waveforms in all arteries except the anterior tibial, posterior tibial, and dorsalis pedis arteries which demonstrate monophasic waveforms. Peak systolic velocities within the left lower arteries are as follows: Common femoral artery: 68 cm/s. Superficial femoral artery: 113 cm/s at proximal, 93 cm/s at mid, and 81 cm/s at distal segments. Popliteal artery: 44 cm/s at proximal and 73 cm/s at distal segments. Posterior tibial artery: 42 cm/s. Anterior tibial artery: 109 cm/s. Dorsalis pedis artery: 80 cm/s. The left lower limb arteries demonstrate biphasic to monophasic waveforms in all arteries. There is intimal wall thickening in both the lower limb arteries. IMPRESSION: Mild intimal wall thickening in both the lower limb arteries. The right lower limb arteries demonstrate triphasic to biphasic waveforms in all arteries except the anterior tibial, posterior tibial, and dorsalis pedis arteries which demonstrate monophasic waveforms. The left lower limb arteries demonstrate biphasic to monophasic waveforms in all arteries. No flow limiting lesions. /[place] DICTATED BY: JORGE SHEPHERD Jr., MD DATE: 10/25/24636 ELECTRONICALLY SIGNED BY: JORGE SHEPHERD Jr., MD DATE: 10/25/[address] [place] [id number] IMAGING REPORT Signed PATIENT: ZAFAR WALDRON MR#: [id number] : 1955 SEX: M AGE: 69 LOCATION: [facility]AH ORDER 1551 [facility] REPORT#: [id number] SERVICE 1547 REASON: PAD ORDERING PHYSICIAN: JUANY LITTLE PROCEDURE: MESENTERIC - US MESENTERIC EXAMINATION: ULTRASOUND OF THE DUPLEX SCAN OF MESENTERIC AND CELIAC ARTERIES. CLINICAL HISTORY: PAD. COMPARISON: CT abdomen and pelvis without contrast from the same day. TECHNIQUE: Real-time grayscale ultrasound images of the abdomen. FINDINGS: The velocities are: Proximal aorta are 70 cm/s. Celiac artery: 144 cm/s. Superior mesenteric artery: 205 cm/s. Inferior mesenteric artery: 203 cm/s. Celiac and superior mesenteric arteries are partially obscured by bowel gas. Raised velocities in the superior and inferior mesenteric arteries. IMPRESSION: Raised velocities in the superior and inferior mesenteric arteries. Recommend CT abdomen angiogram. /[place] DICTATED BY: JELANI FERGUSON MD DATE: 10/25/241642 ELECTRONICALLY SIGNED BY: JELANI FERGUSON MD DATE: 10/25/241642 Assessment/Plan: ASSESSMENT: Hematuria possibly secondary to Nephrolithiasis Acute Kidney Injury possibly due to ATN Urinary tract infection Cholecystitis ruled out Hypomagnesemia Diabetes mellitus type 2 Normocytic anemia Home Medications: Discontinued Reported Medications Tramadol Hcl (Tramadol HCl) 50 Mg Tablet, 50 MG PO DAILY, TAB 07/30/14 Insulin Detemir (Levemir) 100 Unit/1 Ml Vial, 100 UNIT SQ HS, VIAL 07/30/14 Metformin HCl (Metformin HCl) 500 Mg Tablet, 500 MG PO BID, TAB 07/30/14 Time spent arranging discharge: 1-30 minutes ATTESTATION BY PHYSICIAN I have seen and examined the patient. I reviewed the documentation, medical decision making, and treatment plan as noted by the resident provider above. I agree with the findings and plan of care. Rafita Quiroz MD, LAKSHMI MD Oct 27, 2024 06:52
[2024-10-30 15:14] LABS: ATYPICAL P-ANCA AB <1:20 titer (Neg:<1:20)
== END 2024-10-26 16:10 | disposition left against medical advice (07) | DRG 693 ==
LOC: EDH 04:04 → EDHIP 08:06 → 3AH 22:25
PROVIDERS: ADMIT Internal Medicine; ATTEND Internal Medicine
DX: N20.0 Calculus of kidney (principal); N17.0 Acute kidney failure with tubular necrosis; K82.1 Hydrops of gallbladder; N39.0 Urinary tract infection, site not specified; K80.20 Calculus of gallbladder without cholecystitis without obstruction; D64.9 Anemia, unspecified; I70.0 Atherosclerosis of aorta; E83.42 Hypomagnesemia; E11.9 Type 2 diabetes mellitus without complications; Z53.29 Procedure and treatment not carried out because of patient's decision for other reasons; E11.51 Type 2 diabetes mellitus with diabetic peripheral angiopathy without gangrene; E78.5 Hyperlipidemia, unspecified; I10 Essential (primary) hypertension; Z79.82 Long term (current) use of aspirin; Z79.899 Other long term (current) drug therapy
CPT/HCPCS: 36415; 74176; 76705; 78226; 80048; 80051; 80053; 80061; 81001; 82570; 82607; 82728; 82948; 83036; 83605; 83735; 84100; 84145; 84156; 84443; 85025; 85610; 85651; 85730; 86038; 86140; 86160; 86215; 86235; 86255; 86701; 87040; 87086; 87186; 87390; 93005; 93925; 93975; 99285; A9537; G0378; J0696; J1815; J1885; J1956; J2270; J2543; J3475; J3490; J7030; J7120